=== PATIENT | female | born 1965 | race Caucasian/White ===

== ENCOUNTER 2018-02-24 20:04 | Inpatient (IN) | payer MEDICAID, MEDICARE ==
--- NOTE | 2018-02-24 21:06 | ER Document Report ---
ED General - General Chief Complaint: Vomiting Stated Complaint: POSSIBLE HIGH BLOOD PRESSURE, VOMITING Time Seen by Provider: 02/24/18 20:38 Mode of Arrival: Stretcher Information source: Patient Notes: This is a 52-year-old female with a history of atrial fibrillation (Eliquis), breast cancer (status post double mastectomy September of this year), morbid obesity and lymphedema who presents to the emergency room with shaking chills, vomiting x1 with coffee grounds, generalized weakness. Patient has noticed that she is got erythema of the left chest wall which is new from yesterday. The erythema is over the mastectomy site on the left. TRAVEL OUTSIDE OF THE [place] IN LAST 30 DAYS: No - HPI Onset: This morning Onset/Duration: Gradual Quality of pain: Dull Severity: Mild Pain Level: 1 Associated symptoms: Chills, Fever, Nausea Exacerbated by: Denies Relieved by: Denies Similar symptoms previously: No Recently seen / treated by doctor: No - Related Data Allergies/Adverse Reactions: dronedarone [From Multaq] Allergy (Severe, Verified 02/24/18 21:46) Difficulty breathing Past Medical History - General Information source: Patient - Social History Smoking Status: Never Smoker Cigarette use (# per day): No Chew tobacco use (# tins/day): No Frequency of alcohol use: None Drug Abuse: None Lives with: Family Family History: None Patient has suicidal ideation: No Patient has homicidal ideation: No - Past Medical History Cardiac Medical History: Reports: None Pulmonary Medical History: Reports: None EENT Medical History: Reports: None Neurological Medical History: Reports: None Endocrine Medical History: Reports: None Renal/ Medical History: Reports: None. Denies: Hx Peritoneal Dialysis Malignancy Medical History: Reports: Hx Breast Cancer GI Medical History: Reports: None Musculoskeletal Medical History: Reports Hx Arthritis, Reports Other Skin Medical History: Reports Other - Lymphedema lymphedema Psychiatric Medical History: Reports: None Traumatic Medical History: Reports: None Infectious Medical History: Reports: None Past Surgical History: Reports: Hx Mastectomy Review of Systems - Review of Systems Constitutional: Chills, Fever EENT: No symptoms reported Cardiovascular: No symptoms reported Respiratory: No symptoms reported Gastrointestinal: Nausea, Vomiting Genitourinary: No symptoms reported Female Genitourinary: No symptoms reported Musculoskeletal: See HPI Skin: See HPI Hematologic/Lymphatic: No symptoms reported Neurological/Psychological: No symptoms reported Physical Exam - Vital signs Vitals: Temp Pulse Resp BP Pulse Ox 99.5 F 106 H 19 156/82 H 95 02/24/18 20:20 02/24/18 20:20 02/24/18 20:20 02/24/18 20:20 02/24/18 20:20 Notes: 52-year-old female, alert and oriented x3. Her blood pressure is 156/82, pulse of 105, temperature 99.5, respiratory 19, O2 sat 96%. HEAD: Atraumatic, normocephalic. EYES: Pupils equal round and reactive to light, extraocular movements intact, sclera anicteric, conjunctiva are normal. ENT: TMs normal, nares patent, oropharynx clear without exudates. Moist mucous membranes. NECK: Normal range of motion, supple without obvious mass or JVD. LUNGS: Breath sounds clear to auscultation bilaterally and equal. No wheezes rales or rhonchi. Chest wall: Patient has erythema to the left chest wall over the mastectomy site. No obvious fluctuance or drainage. HEART: Regular rate and rhythm without murmurs, rubs or gallops. ABDOMEN: Soft, normoactive bowel sounds. Large reducible abdominal wall hernia without tenderness, rebound or guarding. No masses appreciated. EXTREMITIES: Normal range of motion, no pitting or edema. No clubbing or cyanosis. NEUROLOGICAL: Cranial nerves II through XII grossly intact. Normal speech, moving all extremities. PSYCH: Normal mood, normal affect. SKIN: Warm, Dry, normal turgor, no rashes or lesions noted. Course - Re-evaluation Re-evalutation: 02/24/18 23:20 Note: Patient's been having Rigor's and fever. She does report having redness over the left mastectomy site that started acutely within the last 24 hours. There is a significant cellulitic exchange consultant the left mastectomy site compared to the right. There is no fluctuance. Clinically there is no evidence of abscess. Ultrasound of the chest wall shows no definitive abscess. There is some edematous changes in the skin which you could see with a cellulitis. Blood cultures were sent and patient was started on IV vancomycin. Additionally , I straight cath urine sample does show infection so IV Levofloxacin was also added to the antibiotic regimen. Note: Patient was given ibuprofen once earlier for headache. The plan will be to avoid NSAIDs given her use of Eliquis. 02/24/18 23:50 02/24/18 23:52 - Vital Signs Vital signs: Temp Pulse Resp BP Pulse Ox 99.5 F 106 H 30 H 169/49 H 95 02/24/18 20:20 02/24/18 20:20 02/24/18 20:39 02/24/18 20:39 02/24/18 20:39 - Laboratory Result Diagrams: 02/24/18 20:31 02/24/18 20:31 Laboratory results interpreted by me: 02/24/18 02/24/18 02/24/18 20:31 20:31 21:27 Plt Count 115 L Seg Neutrophils % 86.7 H Lymphocytes % 7.6 L Glucose 144 H Total Bilirubin 1.4 H Urine Glucose (UA) >=500 H Urine Ketones TRACE H Urine Blood MODERATE H Urine Urobilinogen 4.0 H Ur Leukocyte Esterase MODERATE H - Diagnostic Test Radiology reviewed: Image reviewed, Reports reviewed - Chest x-ray shows no infiltrates Critical Care Note - Critical Care Note Total time excluding time spent on procedures (mins): 60 Discharge - Discharge Clinical Impression: Cellulitis chest wall, UTI Condition: Stable Disposition: ADMITTED INPATIENT
[2018-02-24 21:12] LABS: ABSOLUTE LYMPHOCYTES (AUTO) 0.5 10^3/uL (0.5-4.7); ABSOLUTE MONOCYTES (AUTO) 0.3 10^3/uL (0.1-1.4); ABSOLUTE NEUT (AUTO) 5.8 10^3/uL (1.7-8.2); BASOPHILS % (AUTO) 0.4 % (0-2); EOSINOPHILS % (AUTO) 0.2 % (0-6); HEMATOCRIT 38.3 % (36.0-47.0); HEMOGLOBIN 13.1 g/dL (12.0-15.5); LYMPHOCYTES % (AUTO) 7.6 % (13-45); MEAN CORPUSCULAR HEMOGLOBIN 30.9 pg (27.0-33.4); MEAN CORPUSCULAR HGB CONC 34.3 g/dL (32.0-36.0); MEAN CORPUSCULAR VOLUME 90 fl (80-97); MONOCYTES % (AUTO) 5.1 % (3-13); PLATELET COUNT 115 10^3/uL (150-450); RED BLOOD COUNT 4.25 10^6/uL (3.72-5.28); RED CELL DISTRIBUTION WIDTH 13.8 % (11.5-14.0); SEGMENTED NEUTROPHILS % (AUTO) 86.7 % (42-78); TOTAL CELLS COUNTED % (AUTO) 100 %; WHITE BLOOD COUNT 6.7 10^3/uL (4.0-10.5)
[2018-02-24 21:21] LABS: ALANINE AMINOTRANSFERASE 16 U/L (9-52); ALBUMIN 3.6 g/dL (3.5-5.0); ALKALINE PHOSPHATASE 86 U/L (38-126); ANION GAP 13 (5-19); ASPARTATE AMINO TRANSFERASE 29 U/L (14-36); BILIRUBIN,DIRECT 0.4 mg/dL (0.0-0.4); BILIRUBIN,TOTAL 1.4 mg/dL (0.2-1.3); BLOOD UREA NITROGEN 13 mg/dL (7-20); CALCIUM 8.5 mg/dL (8.4-10.2); CARBON DIOXIDE 22 mmol/L (22-30); CHLORIDE 103 mmol/L (98-107); GLUCOSE 144 mg/dL (75-110); SODIUM 137.5 mmol/L (137-145); TOTAL PROTEIN 7.1 g/dL (6.3-8.2)
[2018-02-24] MEDS ORDERED: VANCOMYCIN HCL INJ 1000 MG VIAL IV ONE (21:36)
--- NOTE | 2018-02-24 21:47 | RADIOLOGY REPORT (SQ) ---
EXAM DESCRIPTION: XR CHEST 1 VIEW COMPLETED DATE/TME: 02/24/2018 21:03 Images time stamped 2113 hours. CLINICAL HISTORY: 52 years, Female, fever COMPARISON: None. NUMBER OF VIEWS: 1 TECHNIQUE: Single frontal view of the chest was obtained in AP portable technique. LIMITATIONS: Lordotic positioning. FINDINGS: Prominent cardiac and mediastinal silhouette. Heart size is top normal. Low lung volumes grossly clear without focal opacity, pneumothorax or pleural effusions. The visualized bones are within normal limits. IMPRESSION: No acute cardiopulmonary abnormalities. 2010 [employer]- All Rights Reserved
[2018-02-24 21:51] LABS: APPEARANCE,URINE CLOUDY; BILIRUBIN,URINE NEGATIVE (NEGATIVE); COLOR,URINE YELLOW; GLUCOSE, URINE >=500 mg/dL (NEGATIVE); KETONES,URINE TRACE mg/dL (NEGATIVE); LEUKOCYTE ESTERASE,URINE MODERATE (NEGATIVE); NITRITE,URINE NEGATIVE (NEGATIVE); PROTEIN,URINE NEGATIVE (NEGATIVE); URINE SPECIFIC GRAVITY 1.017
[2018-02-24] MEDS ORDERED: CEFEPIME 1 GM/D5W RTU 1 GM/50 ML RTUPB IV ONE (23:07)
--- NOTE | 2018-02-24 23:18 | RADIOLOGY REPORT (SQ) ---
EXAM DESCRIPTION: US CHEST COMPLETED DATE/TME: 02/24/2018 22:05 CLINICAL HISTORY: 52 years, Female, left chest wall-soft tissue r/o abscess COMPARISON: EXAM DESCRIPTION: CLINICAL HISTORY: left chest wall-soft tissue r/o abscess COMPARISON: None. FINDINGS: Sonography was performed at the site of clinical concern. There is a small amount of fluid and edema. Habitus limits detail. No large fluid collection. No definite abscess. IMPRESSION: No definite abscess. Mild edema and small amounts of fluid are seen in the region of concern. TECHNIQUE: LIMITATIONS: None. FINDINGS: IMPRESSION: 2010 [facility] [employer]- All Rights Reserved
[2018-02-24] MEDS ORDERED: IBUPROFEN 600 MG TABLET PO ONE (23:19)
[2018-02-24] MEDS ORDERED: LEVOFLOXACIN 500 MG/D5W RTU 500 MG/100 ML RTUPB IV ONE (23:24)
[2018-02-24] MEDS ORDERED: IPRATROPIUM/ALBUTEROL 0.5-2.5 MG/3 ML AMPUL NEB PRN (23:57)
[2018-02-24] MEDS ORDERED: DEXTROSE 50%-WATER 25 GM/50 ML DISP.SYRIN IV PRN ×2 (23:57)
[2018-02-24] MEDS ORDERED: ACETAMINOPHEN 325 MG TABLET PO PRN (23:57)
[2018-02-24] MEDS ORDERED: MAG HYDROX/AL HYDROX/SIMETH SUSP 30 ML UDCUP PO PRN (23:57)
[2018-02-24] MEDS ORDERED: MAGNESIUM HYDROXIDE SUSP 30 ML UDCUP PO PRN (23:57)
[2018-02-24] MEDS ORDERED: INSULIN LISPRO 100 UNIT/ML 3 ML VIAL SUBCUT PRN (23:57)
[2018-02-24] MEDS ORDERED: GLUCAGON,HUMAN RECOMB 1 MG INJ IM PRN (23:57)
[2018-02-24] MEDS ORDERED: DEXTROSE 40% GEL 15 GM TUBE PO PRN ×2 (23:57)
[2018-02-25] MEDS ORDERED: OXYCODONE HCL SR 10 MG TABLET PO ONE
[2018-02-25] MEDS ORDERED: NORMAL SALINE 1000 ML 1,000 ML IV PRN (00:04)
[2018-02-25] MEDS ORDERED: METOPROLOL TARTRATE 25 MG TABLET PO ONE (00:15)
[2018-02-25] MEDS ORDERED: VANCOMYCIN HCL 0 MG in DEXTROSE 5%-WATER 250 ML IV NR (05:15)
--- NOTE | 2018-02-25 05:24 | PDOC H&P ---
History of Present Illness Admission Date/PCP: 02/25/18 00:09 Patient complains of: Left mastectomy scar pain History of Present Illness: CARMELA BRADEN is a 52 year old female with a past medical history of morbid obesity, opiate dependent chronic pain, diabetes, hypertension, atrial fibrillation on Eliquis and breast cancer status post double mastectomy September 2017. She presents with 24 hours of erythema, ecchymosis, swelling and pain about the left chest wall overlying the mastectomy scar. Patient states this is how her diagnosis of breast cancer initially presented, she denies acute trauma. She has had subjective fever and chills nausea without vomiting and rigors. In the emergency room she does have an unremarkable workup though is started on empiric antibiotics, symptomatic management and referred to the hospitalist for admission. Past Medical History Cardiac Medical History: Reports: Atrial Fibrillation Pulmonary Medical History: Reports: None Denies: Sleep Apnea EENT Medical History: Reports: None Neurological Medical History: Reports: None Endocrine Medical History: Reports: Diabetes Mellitus Type 2 Renal/ Medical History: Reports: None Malignancy Medical History: Reports: Breast Cancer GI Medical History: Reports: None Musculoskeltal Medical History: Reports: Arthritis, Other Skin Medical History: Reports: Other - Lymphedema lymphedema Psychiatric Medical History: Reports: None, Depression Denies: Substance Abuse, Tobacco Dependency Traumatic Medical History: Reports: None Infectious Medical History: Reports: None Past Surgical History Past Surgical History: Reports: Cholecystectomy, Mastectomy Social History Information Source: Patient Lives with: Family Smoking Status: Former Smoker Frequency of Alcohol Use: None Hx Recreational Drug Use: No Drugs: None Hx Prescription Drug Abuse: No - Advance Directive Resuscitation Status: Full Code Family History Family History: DM, Hypertension Parental Family History Reviewed: Yes Children Family History Reviewed: Yes Sibling(s) Family History Reviewed.: Yes Medication/Allergy Allergies/Adverse Reactions: dronedarone [From Multaq] Allergy (Severe, Verified 02/24/18 21:46) Difficulty breathing Review of Systems Constitutional: ABSENT: chills, fever(s), headache(s), weight gain, weight loss Eyes: ABSENT: visual disturbances Ears: ABSENT: hearing changes Cardiovascular: ABSENT: chest pain, dyspnea on exertion, edema, orthropnea, palpitations Respiratory: ABSENT: cough, hemoptysis Gastrointestinal: ABSENT: abdominal pain, constipation, diarrhea, hematemesis, hematochezia, nausea, vomiting Genitourinary: ABSENT: dysuria, hematuria Musculoskeletal: ABSENT: joint swelling Integumentary: ABSENT: rash, wounds Neurological: ABSENT: abnormal gait, abnormal speech, confusion, dizziness, focal weakness, syncope Psychiatric: ABSENT: anxiety, depression, homidical ideation, suicidal ideation Endocrine: ABSENT: cold intolerance, heat intolerance, polydipsia, polyuria Hematologic/Lymphatic: ABSENT: easy bleeding, easy bruising Physical Exam Vital Signs: Temp Pulse Resp BP Pulse Ox 97.8 F 67 18 115/41 L 98 02/25/18 01:30 02/25/18 01:30 02/25/18 01:30 02/25/18 01:30 02/25/18 01:30 Intake & Output 02/23/18 02/24/18 02/25/18 11:59 11:59 11:59 Intake Total 1100 Balance 1100 Weight 179.2 kg General appearance: PRESENT: cooperative, mild distress, morbidly obese, well- developed, well-nourished Head exam: PRESENT: atraumatic, normocephalic Eye exam: PRESENT: conjunctiva pink, EOMI, PERRLA. ABSENT: scleral icterus Ear exam: PRESENT: normal external ear exam Mouth exam: PRESENT: moist, tongue midline Neck exam: ABSENT: carotid bruit, JVD, lymphadenopathy, thyromegaly Respiratory exam: PRESENT: clear to auscultation son. ABSENT: rales, rhonchi, wheezes Cardiovascular exam: PRESENT: RRR. ABSENT: diastolic murmur, rubs, systolic murmur Pulses: PRESENT: normal dorsalis pedis pul Vascular exam: PRESENT: normal capillary refill GI/Abdominal exam: PRESENT: normal bowel sounds, soft. ABSENT: distended, guarding, mass, organolmegaly, rebound, tenderness Torso Front/Back Image: 1 - 6 x 12 cm ecchymosis and tenderness superimposed on mastectomy scar 2 - 6 x 12 cm ecchymosis and tenderness superimposed on mastectomy scar Rectal exam: PRESENT: deferred Extremities exam: PRESENT: full ROM. ABSENT: calf tenderness, clubbing, pedal edema Neurological exam: PRESENT: alert, awake, oriented to person, oriented to place , oriented to time, oriented to situation, CN II-XII grossly intact. ABSENT: motor sensory deficit Psychiatric exam: PRESENT: appropriate affect, normal mood. ABSENT: homicidal ideation, suicidal ideation Skin exam: PRESENT: dry, intact, warm. ABSENT: cyanosis, rash Results Impressions: Chest X-Ray 02/24/18 21:03 IMPRESSION: No acute cardiopulmonary abnormalities. 2010 [employer]- All Rights Reserved Chest Ultrasound 02/24/18 22:05 IMPRESSION: No definite abscess. Mild edema and small amounts of fluid are seen in the region of concern. TECHNIQUE: LIMITATIONS: None. FINDINGS: IMPRESSION: 2010 [employer]- All Rights Reserved Assessment & Plan - Diagnosis (1) Cellulitis of chest wall Is this a current diagnosis for this admission?: Yes Plan: Cellulitis Will obtain blood and wound culture repeat CBC, continue empiric antibiotic coverage for community-acquired MRSA with double coverage and symptomatic management. Consider surgical consultation if not significantly improved with follow-up evaluation. (2) Diabetes Is this a current diagnosis for this admission?: Yes Plan: Outpatient regiment with Humalog sliding scale (3) Atrial fibrillation Is this a current diagnosis for this admission?: Yes Plan: Continue metoprolol with Eliquis (4) Breast cancer Is this a current diagnosis for this admission?: Yes Plan: Given spontaneous recurrence of symptom heralding breast cancer diagnosis will consult oncology - Time Time Spent: 50 to 70 Minutes - Inpatient Certification Medical Necessity: Need Close Monitoring Due to Risk of Patient Decompensation
[2018-02-25 05:41] LABS: ABSOLUTE LYMPHOCYTES (AUTO) 0.7 10^3/uL (0.5-4.7); ABSOLUTE MONOCYTES (AUTO) 0.3 10^3/uL (0.1-1.4); ABSOLUTE NEUT (AUTO) 4.8 10^3/uL (1.7-8.2); BASOPHILS % (AUTO) 0.2 % (0-2); EOSINOPHILS % (AUTO) 0.6 % (0-6); HEMATOCRIT 34.9 % (36.0-47.0); LYMPHOCYTES % (AUTO) 11.6 % (13-45); MEAN CORPUSCULAR HGB CONC 34.5 g/dL (32.0-36.0); MEAN CORPUSCULAR VOLUME 90 fl (80-97); MONOCYTES % (AUTO) 5.3 % (3-13); RED BLOOD COUNT 3.88 10^6/uL (3.72-5.28); RED CELL DISTRIBUTION WIDTH 13.9 % (11.5-14.0); SEGMENTED NEUTROPHILS % (AUTO) 82.3 % (42-78); TOTAL CELLS COUNTED % (AUTO) 100 %; WHITE BLOOD COUNT 5.9 10^3/uL (4.0-10.5)
[2018-02-25] MEDS ORDERED: VANCOMYCIN HCL 1,500 MG in DEXTROSE 5%-WATER 250 ML IV ONE (05:45)
[2018-02-25 05:47] LABS: PLATELET COUNT 98 10^3/uL (150-450)
[2018-02-25] MEDS ORDERED: HEPARIN SOD (PORCINE) 5,000 UNIT/ML 1 ML SYRINGE SUBCUT SCH (06:00)
[2018-02-25 06:07] LABS: ANION GAP 11 (5-19); BLOOD UREA NITROGEN 15 mg/dL (7-20); CALCIUM 8.2 mg/dL (8.4-10.2); CARBON DIOXIDE 22 mmol/L (22-30); CHLORIDE 105 mmol/L (98-107); GLUCOSE 124 mg/dL (75-110); POTASSIUM 3.7 mmol/L (3.6-5.0); SODIUM 137.7 mmol/L (137-145)
[2018-02-25] MEDS: DOCUSATE SODIUM 100 MG CAPSULE PO SCH ×2 (10:24→17:43)
[2018-02-25] MEDS: VANCOMYCIN HCL 1,250 MG in DEXTROSE 5%-WATER 250 ML IV SCH ×2 (10:25→17:43)
[2018-02-25] MEDS: METOPROLOL TARTRATE 25 MG TABLET PO SCH ×2 (10:25→17:43)
--- NOTE | 2018-02-25 10:41 | PDOC PROGRESS REPORT ---
Subjective Progress Note for:: 02/25/18 Subjective:: The patient is a 52-year-old female with a past medical history of super morbid obesity, opiate dependence, chronic pain, diabetes, hypertension, atrial fibrillation on Eliquis, and breast cancer status post double mastectomy in September 2017 who was admitted 02/25/2018 for development of cellulitis to her left mastectomy site. Patient was seen on morning rounds with her daughter present. She was found resting in bed comfortably on room air. The patient reports that she had 2-3 days of subjective fever, anorexia, and generalized malaise. She states that yesterday she felt feverish and noted that her heart rate was elevated and that she had a high blood pressure. She had one episode of bright red emesis. She states that short time later she then noted dark brown emesis; "looked like stool." She denies associated abdominal pain, reflux symptoms, melena or hematochezia. She states that this prompted her to call EMS; at the time of EMS arrival her tachycardia, hypertension, and nausea had all resolved. They conducted an EKG, which she reports to be normal, and states that at that time she did not have any erythema to her chest. However, it was decided to be evaluated in the emergency department and upon her arrival there via EMS, she had developed erythema to her left chest wall at her mastectomy site extending to her left upper back and encompassing a skin flap. She denies headache, dizziness, chest pain, palpitations, abd pain, nausea, vomiting, or tenderness to her chest wall. She does confirm continued subjective fever and chills. She has no new questions or concerns. No concerns per nursing. Reason For Visit: CHEST WALL CELLULITIS MORBID OBESITY DIABETES Physical Exam Vital Signs: Temp Pulse Resp BP Pulse Ox 98.5 F 71 16 145/55 H 100 02/25/18 08:09 02/25/18 08:09 02/25/18 08:09 02/25/18 08:09 02/25/18 08:09 Intake & Output 02/24/18 02/25/18 02/26/18 06:59 06:59 06:59 Intake Total 1100 Balance 1100 Weight 179.2 kg General appearance: PRESENT: no acute distress, cooperative, morbidly obese, well-developed Head exam: PRESENT: atraumatic, normocephalic Eye exam: PRESENT: conjunctiva pink, EOMI, PERRLA. ABSENT: scleral icterus Ear exam: PRESENT: normal external ear exam Mouth exam: PRESENT: moist, tongue midline Neck exam: ABSENT: carotid bruit, JVD, lymphadenopathy, thyromegaly Respiratory exam: PRESENT: clear to auscultation son, decreased breath sounds - Secondary to body habitus and poor inspiratory effort, symmetrical, unlabored. ABSENT: rales, rhonchi, wheezes Cardiovascular exam: PRESENT: RRR. ABSENT: diastolic murmur, rubs, systolic murmur Pulses: PRESENT: normal dorsalis pedis pul Vascular exam: PRESENT: normal capillary refill GI/Abdominal exam: PRESENT: normal bowel sounds, soft. ABSENT: distended, guarding, mass, organolmegaly, rebound, tenderness Extremities exam: PRESENT: full ROM. ABSENT: calf tenderness, clubbing, pedal edema Neurological exam: PRESENT: alert, awake, oriented to person, oriented to place , oriented to time, oriented to situation, CN II-XII grossly intact. ABSENT: motor sensory deficit Psychiatric exam: PRESENT: appropriate affect, normal mood. ABSENT: homicidal ideation, suicidal ideation Skin exam: PRESENT: dry, intact, warm, other - Deep red/purple erythema to her left chest wall extending from midway through her healed mastectomy scar around to her mid upper back. Outlined by skin marker with no apparent change. Nontender. No drainage. No break in skin noted. Resembles ecchymosis.. ABSENT: cyanosis, rash Results Laboratory Results: 02/25/18 04:23 02/25/18 04:23 02/25/18 02/25/18 04:23 04:23 WBC 5.9 RBC 3.88 Hgb 12.0 Hct 34.9 L MCV 90 MCH 31.0 MCHC 34.5 RDW 13.9 Plt Count 98 L Seg Neutrophils % 82.3 H Lymphocytes % 11.6 L Monocytes % 5.3 Eosinophils % 0.6 Basophils % 0.2 Absolute Neutrophils 4.8 Absolute Lymphocytes 0.7 Absolute Monocytes 0.3 Absolute Eosinophils 0.0 Absolute Basophils 0.0 Sodium 137.7 Potassium 3.7 Chloride 105 Carbon Dioxide 22 Anion Gap 11 BUN 15 Creatinine 0.59 Est GFR ( Amer) > 60 Est GFR (Non-Af Amer) > 60 Glucose 124 H Calcium 8.2 L Impressions: Chest X-Ray 02/24/18 21:03 IMPRESSION: No acute cardiopulmonary abnormalities. 2010 [employer]- All Rights Reserved Chest Ultrasound 02/24/18 22:05 IMPRESSION: No definite abscess. Mild edema and small amounts of fluid are seen in the region of concern. TECHNIQUE: LIMITATIONS: None. FINDINGS: IMPRESSION: 2010 [employer]- All Rights Reserved Assessment & Plan - Diagnosis (1) Cellulitis of chest wall Is this a current diagnosis for this admission?: Yes Plan: The patient presented with nontender, nondraining, erythema to her left chest wall at mastectomy site extending around to her mid upper back. The patient reported to EMS completed an EKG at her home and at that time, she had no erythema. She was transported to the emergency department, and upon arrival noted a large area of erythema. The patient reports subjective fevers and chills with anorexia at home for the previous 2-3 days; however, is now known to have a urinary tract infection. T-max since arrival is 99.5. WBCs are normal. Differentials include cellulitis, recurrence of breast malignancy, and ecchymosis from seatbelt placement during transportation on EMS stretcher. Chest ultrasound revealed mild edema with a small amount of fluid but no definite abscess observed. Blood cultures are pending. The patient has empirically been placed on IV vancomycin and Levaquin. Surgical and oncological consultations are pending. (2) Hematemesis Qualifiers: Nausea presence: with nausea Qualified Code(s): K92.0 - Hematemesis Is this a current diagnosis for this admission?: Yes Plan: The patient reports one episode of hematemesis yesterday followed by an additional episode of emesis with dark brown to black material yesterday which prompted her evaluation by EMS. The patient has been on full dose Eliquis for her chronic atrial fibrillation. Hemoglobin on arrival 13.1, has drifted down to 12 with IV fluids and IV antibiotics. Occult stool is pending. Holding Eliquis. Protonix IV twice daily. Clear liquid diet. (3) Atrial fibrillation Qualifiers: Atrial fibrillation type: chronic Qualified Code(s): I48.2 - Chronic atrial fibrillation Is this a current diagnosis for this admission?: Yes Plan: Continue home dose metoprolol. Holding Eliquis and aspirin secondary to report of hematemesis. (4) Breast cancer Is this a current diagnosis for this admission?: Yes Plan: The patient reports that her initial breast cancer diagnosis was prompted by an admission for abscess and cellulitis of her left breast. She states that did not receive radiation or chemotherapy at any time. She underwent a double mastectomy in September 2017. Due to the sudden onset of erythema at her mastectomy site, oncology has been consulted. Appreciate their evaluation recommendations. (5) Diabetes Qualifiers: Diabetes mellitus type: type 2 Diabetes mellitus exterminator helper termite insulin use: without chcf use Is this a current diagnosis for this admission?: Yes Plan: A1c 5.9%. She is currently on a clear liquid diet. Accu-Cheks before meals and at bedtime with Humalog for sliding scale coverage. Registered dietitian has been consulted. (6) UTI (urinary tract infection) Qualifiers: Urinary tract infection type: site unspecified Hematuria presence: without hematuria Qualified Code(s): N39.0 - Urinary tract infection, site not specified Is this a current diagnosis for this admission?: Yes Plan: The patient reports 2-3 days of malaise, fatigue, subjective fever and chills. She denies specific urinary symptoms, however urinalysis was grossly positive for urinary tract infection. Urine culture is pending. She is empirically been placed on IV vancomycin and Levaquin for both UTI and presumed cellulitis of the chest wall. Will adjust antibiotics as cultures result. (7) Morbid obesity with BMI of 60.0-69.9, adult Is this a current diagnosis for this admission?: Yes Plan: The patient is noted to have a BMI of 60.1. She reports limited mobility due to joint pain and weakness. The registered dietitian is consulted. Have also consulted physical therapy. Bariatric bed is ordered. Patient is to be out of bed 3 times daily for all meals. - Time Time Spent with patient: 25-34 minutes Medications reviewed and adjusted accordingly: Yes Anticipated discharge: Home Within: within 48 hours
--- NOTE | 2018-02-25 11:09 | PDOC CONSULTATION ---
Consultation Consult Date: 02/25/18 Attending physician:: GARRETT ZIMMERMAN Consult reason:: Known hx of stage 1 breast ca s/p b/l mastectomy here w/ new onset cellulitis History of Present Illness Admission Date/PCP: 02/25/18 00:09 Patient complains of: History of stage I breast cancer now with what appears to be cellulitis of the skin History of Present Illness: CARMELA BRADEN is a 52 year old female with known history of stage I breast cancer. She was originally diagnosed in 02/2017, at that time she had a cellulitis of the left breast, and ultimately this was followed with antibiotics , she had mammogram and ultrasound which showed a left breast mass, she was then referred to Dr. Saenz of breast surgery in [place]. Ultimately she decided on bilateral mastectomy, and this happened earlier this year, and she tells me she was diagnosed with a stage I breast cancer lymph node negative. She was recommended by Dr. Saenz that no adjuvant therapy was needed and she was then just placed on follow-up with him. She is supposed to follow-up in March with them. She did well after surgery and had no complaints. About 24 hours ago she began having acute onset fevers chills nausea and vomiting. Ultimately she had some tachycardia, she has known A. fib that was uncovered during the preoperative evaluation for the breast surgery. She called EMS who initially evaluated her and felt she was stable for follow-up with her PCP, and she apparently noticed some redness of the left chest wall after that EMS evaluation. Apparently the chills and nausea continued so she decided to come to the ED, and she came by EMS, apparently by the time she got to the ED the redness of the chest wall had spread to the back. In the ED she was also found to have UA consistent with a UTI and she has been on coverage for both cellulitis as well as UTI with vancomycin and Levaquin. Cultures are pending. She is having current chills in the room. Past Medical History Cardiac Medical History: Reports: None, Atrial Fibrillation Pulmonary Medical History: Reports: None Denies: Sleep Apnea EENT Medical History: Reports: None Neurological Medical History: Reports: None Endocrine Medical History: Reports: None, Diabetes Mellitus Type 2 Renal/ Medical History: Reports: None Malignancy Medical History: Reports: Breast Cancer GI Medical History: Reports: None Musculoskeltal Medical History: Reports: Arthritis, Other Skin Medical History: Reports: Other - Lymphedema lymphedema Psychiatric Medical History: Reports: None, Depression Denies: Substance Abuse, Tobacco Dependency Traumatic Medical History: Reports: None Infectious Medical History: Reports: None Past Surgical History Past Surgical History: Reports: Cholecystectomy, Mastectomy Social History Information Source: Patient Lives with: Family Smoking Status: Former Smoker Cigarettes Packs Per Day: 3 Pipes Per Day: 30 Last Time Smoked: 7 yrs ago Frequency of Alcohol Use: None Hx Recreational Drug Use: No Drugs: None Hx Prescription Drug Abuse: No - Advance Directive Resuscitation Status: Full Code Family History Family History: DM, Hypertension Parental Family History Reviewed: Yes Children Family History Reviewed: Yes Sibling(s) Family History Reviewed.: Yes Medication/Allergy Allergies/Adverse Reactions: dronedarone [From Multaq] Allergy (Severe, Verified 02/24/18 21:46) Difficulty breathing Review of Systems Constitutional: PRESENT: anorexia, chills, fatigue, fever(s), weakness Cardiovascular: ABSENT: chest pain, dyspnea on exertion, edema, orthropnea, palpitations Gastrointestinal: PRESENT: nausea, vomiting Musculoskeletal: ABSENT: joint swelling Integumentary: PRESENT: diaphoresis Neurological: ABSENT: abnormal gait, abnormal speech, confusion, dizziness, focal weakness, syncope Psychiatric: PRESENT: anxiety Endocrine: PRESENT: cold intolerance Physical Exam Vital Signs: Temp Pulse Resp BP Pulse Ox 98.5 F 71 16 145/55 H 100 02/25/18 08:09 02/25/18 08:09 02/25/18 08:09 02/25/18 08:09 02/25/18 08:09 Intake & Output 02/24/18 02/25/18 02/26/18 06:59 06:59 06:59 Intake Total 1100 Balance 1100 Weight 179.2 kg General appearance: PRESENT: no acute distress, well-developed, well-nourished Head exam: PRESENT: atraumatic, normocephalic Eye exam: PRESENT: conjunctiva pink, EOMI, PERRLA. ABSENT: scleral icterus Ear exam: PRESENT: normal external ear exam Mouth exam: PRESENT: moist, tongue midline Neck exam: ABSENT: carotid bruit, JVD, lymphadenopathy, thyromegaly Respiratory exam: PRESENT: clear to auscultation son. ABSENT: rales, rhonchi, wheezes Cardiovascular exam: PRESENT: RRR. ABSENT: diastolic murmur, rubs, systolic murmur Pulses: PRESENT: normal dorsalis pedis pul Vascular exam: PRESENT: normal capillary refill GI/Abdominal exam: PRESENT: normal bowel sounds, soft. ABSENT: distended, guarding, mass, organolmegaly, rebound, tenderness Rectal exam: PRESENT: deferred Extremities exam: PRESENT: full ROM. ABSENT: calf tenderness, clubbing, pedal edema Neurological exam: PRESENT: alert, awake, oriented to person, oriented to place , oriented to time, oriented to situation, CN II-XII grossly intact. ABSENT: motor sensory deficit Psychiatric exam: PRESENT: appropriate affect, normal mood. ABSENT: homicidal ideation, suicidal ideation Skin exam: PRESENT: dry, intact, warm, other - Redness left mastectomy could scar tracking to the back Results Laboratory Results: 02/25/18 04:23 02/25/18 04:23 02/25/18 02/25/18 04:23 04:23 WBC 5.9 RBC 3.88 Hgb 12.0 Hct 34.9 L MCV 90 MCH 31.0 MCHC 34.5 RDW 13.9 Plt Count 98 L Seg Neutrophils % 82.3 H Lymphocytes % 11.6 L Monocytes % 5.3 Eosinophils % 0.6 Basophils % 0.2 Absolute Neutrophils 4.8 Absolute Lymphocytes 0.7 Absolute Monocytes 0.3 Absolute Eosinophils 0.0 Absolute Basophils 0.0 Sodium 137.7 Potassium 3.7 Chloride 105 Carbon Dioxide 22 Anion Gap 11 BUN 15 Creatinine 0.59 Est GFR ( Amer) > 60 Est GFR (Non-Af Amer) > 60 Glucose 124 H Calcium 8.2 L Impressions: Chest X-Ray 02/24/18 21:03 IMPRESSION: No acute cardiopulmonary abnormalities. 2010 [employer]- All Rights Reserved Chest Ultrasound 02/24/18 22:05 IMPRESSION: No definite abscess. Mild edema and small amounts of fluid are seen in the region of concern. TECHNIQUE: LIMITATIONS: None. FINDINGS: IMPRESSION: 2010 [employer]- All Rights Reserved Status: Image reviewed by me Assessment & Plan - Diagnosis (1) Cellulitis of chest wall Is this a current diagnosis for this admission?: Yes Plan: Discussed with hospitalist team, there may actually been more of a bruise from the stretcher belt from EMS but given the fact that there were chills and fevers it may be cellulitis. Agree with current therapy with vancomycin and Levaquin, we should see improvement in the redness if it truly is cellulitis within 24-48 hours. If instead it is truly a bruise then we should see changes consistent with that within the same time. If instead the redness continues and it does not seem to be related to trauma, and appropriate antibiotics are continued, then we would want to further evaluate for the possibility of underlying recurrent disease with imaging. But I think is less likely to be recurrent disease. (2) Breast cancer Qualifiers: Breast location: upper outer quadrant of breast Estrogen receptor status: unspecified Patient sex: female Laterality: left Qualified Code(s): C50.412 - Malignant neoplasm of upper-outer quadrant of left female breast Is this a current diagnosis for this admission?: Yes Plan: Unknown if it is hormone receptor positive or negative breast cancer, we have requested records from [place]. We will see her as an outpatient and establish care as well and get records that way if needed. Plan for treatment of the cellulitis and UTI if there is no improvement we will plan for evaluation of the breast cancer with CT of the chest abd pelvis and bone scan and possibly focused ultrasound of the chest wall if needed. (3) UTI (urinary tract infection) Qualifiers: Urinary tract infection type: acute cystitis Hematuria presence: without hematuria Qualified Code(s): N30.00 - Acute cystitis without hematuria Is this a current diagnosis for this admission?: Yes Plan: Appears to have UTI awaiting urine cultures agree with current antibiotic approach - Time Time Spent: Greater than 70 Minutes - Inpatient Certification Based on my medical assessment, after consideration of the patient's comorbidities, presenting symptoms, or acuity I expect that the services needed warrant INPATIENT care.: Yes I certify that my determination is in accordance with my understanding of Medicare's requirements for reasonable and necessary INPATIENT services [42 CFR 412.3e].: Yes Medical Necessity: Need for IV Antibiotics, Risk of Complication if Not Cared For in Hospital
[2018-02-25] MEDS ORDERED: NYSTATIN TOPICAL POWDER 15 GM TP PRN (12:51)
[2018-02-25 12:53] LABS: INTERNATIONAL RATION (INR) 1.36; PROTHROMBIN TIME 17.5 SEC (11.4-15.4)
[2018-02-25] MEDS ORDERED: ONDANSETRON HCL INJ/PF 4 MG/2 ML SDV IV PRN (13:08)
[2018-02-25] MEDS ORDERED: ACETAMINOPHEN 325 MG TABLET PO PRN (14:15)
[2018-02-25] MEDS ORDERED: OXYCODONE HCL IR 5 MG TABLET PO PRN (14:15)
[2018-02-25] MEDS: LEVOFLOXACIN 750 MG/D5W RTU 750 MG/150 ML RTUPB IV SCH (21:26)
[2018-02-25] MEDS: PANTOPRAZOLE SODIUM 40 MG VIAL IV SCH (21:27)
[2018-02-26] MEDS: VANCOMYCIN HCL 1,250 MG in DEXTROSE 5%-WATER 250 ML IV SCH ×3 (02:04→17:50)
[2018-02-26 05:53] LABS: ABSOLUTE EOSINOPHILS # (AUTO) 0.1 10^3/uL (0.0-0.6); ABSOLUTE LYMPHOCYTES (AUTO) 0.8 10^3/uL (0.5-4.7); ABSOLUTE MONOCYTES (AUTO) 0.4 10^3/uL (0.1-1.4); ABSOLUTE NEUT (AUTO) 2.2 10^3/uL (1.7-8.2); BASOPHILS % (AUTO) 0.3 % (0-2); EOSINOPHILS % (AUTO) 1.6 % (0-6); HEMATOCRIT 34.1 % (36.0-47.0); HEMOGLOBIN 11.6 g/dL (12.0-15.5); LYMPHOCYTES % (AUTO) 22.5 % (13-45); MEAN CORPUSCULAR HEMOGLOBIN 30.8 pg (27.0-33.4); MEAN CORPUSCULAR VOLUME 91 fl (80-97); MONOCYTES % (AUTO) 12.2 % (3-13); PLATELET COUNT 103 10^3/uL (150-450); RED BLOOD COUNT 3.77 10^6/uL (3.72-5.28); SEGMENTED NEUTROPHILS % (AUTO) 63.4 % (42-78); TOTAL CELLS COUNTED % (AUTO) 100 %; WHITE BLOOD COUNT 3.4 10^3/uL (4.0-10.5)
[2018-02-26] MEDS: LEVOTHYROXINE SODIUM 0.088 MG TABLET PO SCH (06:10)
[2018-02-26 06:28] LABS: ANION GAP 9 (5-19); BLOOD UREA NITROGEN 12 mg/dL (7-20); CALCIUM 8.1 mg/dL (8.4-10.2); CARBON DIOXIDE 24 mmol/L (22-30); CHLORIDE 104 mmol/L (98-107); GLUCOSE 104 mg/dL (75-110); POTASSIUM 3.8 mmol/L (3.6-5.0); SODIUM 137.2 mmol/L (137-145)
[2018-02-26 09:19] LABS: FREE T3 2.65 pg/mL (2.77-5.27); FREE T4 (FREE THYROXINE) 0.84 ng/dL (0.78-2.19)
[2018-02-26] MEDS: PANTOPRAZOLE SODIUM 40 MG VIAL IV SCH ×2 (09:21→21:46)
[2018-02-26] MEDS: DOCUSATE SODIUM 100 MG CAPSULE PO SCH ×2 (10:48→17:50)
[2018-02-26] MEDS: METOPROLOL TARTRATE 25 MG TABLET PO SCH ×2 (10:48→17:50)
[2018-02-26] MEDS: EZETIMIBE 10 MG TABLET PO SCH (10:48)
[2018-02-26] MEDS: LOSARTAN POTASSIUM 50 MG TABLET PO SCH (10:49)
--- NOTE | 2018-02-26 10:53 | PDOC PROGRESS REPORT ---
Subjective Progress Note for:: 02/26/18 Subjective:: The patient is a 52-year-old female with a past medical history of super morbid obesity, opiate dependence, chronic pain, diabetes, hypertension, atrial fibrillation on Eliquis, and breast cancer status post double mastectomy in September 2017 who was admitted 02/25/2018 for development of cellulitis to her left mastectomy site. Patient was seen on morning rounds. She was found resting in bed comfortably on room air. She reports continued subjective fever and chills. She also reports increased tenderness to her left chest wall, described as a burning or stinging sensation. She did experience slight nausea yesterday, but no episodes of vomiting. She denies headache, dizziness, chest pain, palpitations, abd pain, and vomiting. She has no new questions or concerns. No concerns per nursing. Reason For Visit: CHEST WALL CELLULITIS MORBID OBESITY DIABETES Physical Exam Vital Signs: Temp Pulse Resp BP Pulse Ox 99.0 F 70 18 154/61 H 97 02/26/18 08:57 02/26/18 09:41 02/26/18 09:41 02/26/18 08:57 02/26/18 09:41 Intake & Output 02/25/18 02/26/18 02/27/18 06:59 06:59 06:59 Intake Total 1100 900 Balance 1100 900 Weight 179.2 kg General appearance: PRESENT: no acute distress, cooperative, morbidly obese, well-developed Head exam: PRESENT: atraumatic, normocephalic Eye exam: PRESENT: conjunctiva pink, EOMI, PERRLA. ABSENT: scleral icterus Ear exam: PRESENT: normal external ear exam Mouth exam: PRESENT: moist, tongue midline Neck exam: ABSENT: carotid bruit, JVD, lymphadenopathy, thyromegaly Respiratory exam: PRESENT: clear to auscultation son, decreased breath sounds - bibasilar secondary to body habitus, positioning, and poor inspiratory effort, symmetrical, unlabored. ABSENT: rales, rhonchi, wheezes Cardiovascular exam: PRESENT: RRR, +S1, +S2. ABSENT: diastolic murmur, rubs, systolic murmur Pulses: PRESENT: normal dorsalis pedis pul Vascular exam: PRESENT: normal capillary refill GI/Abdominal exam: PRESENT: hernia - large umbilical hernia, normal bowel sounds , soft, other - exam limited secondary to body habitus. ABSENT: distended, guarding, mass, organolmegaly, rebound, tenderness Rectal exam: PRESENT: deferred Extremities exam: PRESENT: full ROM. ABSENT: calf tenderness, clubbing, pedal edema Neurological exam: PRESENT: alert, awake, oriented to person, oriented to place , oriented to time, oriented to situation, CN II-XII grossly intact. ABSENT: motor sensory deficit Psychiatric exam: PRESENT: appropriate affect, normal mood. ABSENT: homicidal ideation, suicidal ideation Skin exam: PRESENT: dry, erythema - Deep red erythema to her left chest wall extending from midway through her healed mastectomy scar around to her mid upper back. Outlined by skin marker upon presentation to ED. Errythema does resemble early ecchymosis, however, is entirely unchanged from yesterday., intact, warm. ABSENT: cyanosis, rash Results Laboratory Results: 02/26/18 04:37 02/26/18 04:37 02/25/18 02/26/18 02/26/18 11:50 04:37 04:37 WBC 3.4 L RBC 3.77 Hgb 11.6 L Hct 34.1 L MCV 91 MCH 30.8 MCHC 34.0 RDW 14.0 Plt Count 103 L Seg Neutrophils % 63.4 Lymphocytes % 22.5 Monocytes % 12.2 Eosinophils % 1.6 Basophils % 0.3 Absolute Neutrophils 2.2 Absolute Lymphocytes 0.8 Absolute Monocytes 0.4 Absolute Eosinophils 0.1 Absolute Basophils 0.0 Sodium 137.2 Potassium 3.8 Chloride 104 Carbon Dioxide 24 Anion Gap 9 BUN 12 Creatinine 0.59 Est GFR ( Amer) > 60 Est GFR (Non-Af Amer) > 60 Glucose 104 Calcium 8.1 L TSH Free T4 Free T3 pg/mL Stool Occult Blood POSITIVE 02/26/18 02/26/18 04:37 04:37 WBC RBC Hgb Hct MCV MCH MCHC RDW Plt Count Seg Neutrophils % Lymphocytes % Monocytes % Eosinophils % Basophils % Absolute Neutrophils Absolute Lymphocytes Absolute Monocytes Absolute Eosinophils Absolute Basophils Sodium Potassium Chloride Carbon Dioxide Anion Gap BUN Creatinine Est GFR ( Amer) Est GFR (Non-Af Amer) Glucose Calcium TSH 48.70 H Free T4 0.84 Free T3 pg/mL 2.65 L Stool Occult Blood Impressions: Chest X-Ray 02/24/18 21:03 IMPRESSION: No acute cardiopulmonary abnormalities. 2010 [employer]- All Rights Reserved Chest Ultrasound 02/24/18 22:05 IMPRESSION: No definite abscess. Mild edema and small amounts of fluid are seen in the region of concern. TECHNIQUE: LIMITATIONS: None. FINDINGS: IMPRESSION: 2010 [facility] [employer]- All Rights Reserved Assessment & Plan - Diagnosis (1) Cellulitis of chest wall Is this a current diagnosis for this admission?: Yes Plan: Unchanged appearance from yesterday; erythema has not progressed past the skin marker outline and retains its deep red color. The patient presented with nontender, nondraining, erythema to her left chest wall at mastectomy site extending around to her mid upper back. The patient reported to EMS completed an EKG at her home and at that time, she had no erythema. Upon arrival to the emergency department, noted a large area of erythema. The patient reports subjective fevers and chills with anorexia at home for the previous 2-3 days; however, is now known to have a urinary tract infection. T-max since arrival is 99.5. WBCs are normal. Blood cultures are negative at 24 hours. Differentials include cellulitis, recurrence of breast malignancy, and ecchymosis. However, it has been confirmed that the patient arrived POV, not EMS as previously believed; therefore it is not related to seatbelt placement. Chest ultrasound revealed mild edema with a small amount of fluid but no definite abscess observed. Blood cultures are pending. The patient has empirically been placed on IV vancomycin and Levaquin. Oncological consultations is appreciated; recommends continued antibiotics at this time. (2) Hematemesis Qualifiers: Nausea presence: with nausea Qualified Code(s): K92.0 - Hematemesis Is this a current diagnosis for this admission?: Yes Plan: The patient reports one episode of hematemesis yesterday followed by an additional episode of emesis with dark brown to black material yesterday which prompted her evaluation by EMS. The patient has been on full dose Eliquis for her chronic atrial fibrillation. Hemoglobin on arrival 13.1, has drifted down to 11.6 with IV fluids and IV antibiotics. Occult stool is positive. Holding Eliquis. Protonix IV twice daily. Clear liquid diet. Surgery has been consulted; appreciate their assistance in evaluating for GI bleed. (3) Atrial fibrillation Qualifiers: Atrial fibrillation type: chronic Qualified Code(s): I48.2 - Chronic atrial fibrillation Is this a current diagnosis for this admission?: Yes Plan: Rate controlled on home dose metoprolol. Holding Eliquis and aspirin secondary to report of hematemesis. (4) Breast cancer Qualifiers: Breast location: upper outer quadrant of breast Estrogen receptor status: unspecified Patient sex: female Laterality: left Qualified Code(s): C50.412 - Malignant neoplasm of upper-outer quadrant of left female breast Is this a current diagnosis for this admission?: Yes Plan: The patient reports that her initial breast cancer diagnosis was prompted by an admission for abscess and cellulitis of her left breast. She states that did not receive radiation or chemotherapy at any time. She underwent a double mastectomy in September 2017. Due to the sudden onset of erythema at her mastectomy site, oncology has been consulted. Appreciate their evaluation recommendations. (5) Diabetes Qualifiers: Diabetes mellitus type: type 2 Diabetes mellitus senior living insulin use: without senior living use Is this a current diagnosis for this admission?: Yes Plan: A1c 5.9%. She is currently on a clear liquid diet. Accu-Cheks before meals and at bedtime with Humalog for sliding scale coverage. Registered dietitian has been consulted. (6) UTI (urinary tract infection) Qualifiers: Urinary tract infection type: acute cystitis Hematuria presence: without hematuria Qualified Code(s): N30.00 - Acute cystitis without hematuria Is this a current diagnosis for this admission?: Yes Plan: The patient reports 2-3 days of malaise, fatigue, subjective fever and chills. She denies specific urinary symptoms, however urinalysis was grossly positive for urinary tract infection. Urine culture #1 E Coli resistant to tetracycline, bactrim, and ampicillin; #2 gram negative kwabena. Continue IV vancomycin and Levaquin for both UTI and cellulitis of the chest wall. Will adjust antibiotics as cultures result. (7) Hypothyroid Is this a current diagnosis for this admission?: Yes Plan: TSH 48.70 Free T4 0.84 Free T3 2.65 Continue home dose levothyroxine. (8) Morbid obesity with BMI of 60.0-69.9, adult Is this a current diagnosis for this admission?: Yes Plan: The patient is noted to have a BMI of 60.1. She reports limited mobility due to joint pain and weakness. The registered dietitian is consulted. Have also consulted physical therapy. Bariatric bed is ordered. Patient is to be out of bed 3 times daily for all meals. Incentive spirometry to bedside. DVT prophylaxis held secondary to GI bleed. - Time Time Spent with patient: 15-24 minutes Medications reviewed and adjusted accordingly: Yes Anticipated discharge: Home
[2018-02-26 10:58] LABS: VANCOMYCIN,TROUGH 12.5 ug/mL (5.0-20.0)
--- NOTE | 2018-02-26 11:18 | PDOC CONSULTATION ---
Consultation Consult Date: 02/26/18 Attending physician:: RHONDA WILSON Consult reason:: Left chest wall pathology History of Present Illness Admission Date/PCP: 02/25/18 00:09 History of Present Illness: CARMELA BRADEN is a 52 year old female With a history of morbid obesity, COPD, atrial fibrillation, on Eliquis, presents to the emergency department a day and a half ago via ground rescue complaining of a variety of symptoms including fever, tachycardia, redness involving her left chest wall and throwing up [id number] with specks of blood. She was evaluated in the emergency department where she is found to what was believed to be cellulitis of the anterior chest wall at site of previous mastectomy and was admitted to the hospital service for same. She has been on intravenous antibiotics for 2 days without clinical improvement. Stool was checked for guaiac and it was heme positive. She denies clinical evidence of GI bleeding, history of peptic ulcer disease; she is never had a colonoscopy. Patient's past history includes a diagnosis of left breast cancer presenting with skin involvement by her report. She underwent bilateral mastectomy by Dr. Saenz in [facility] approximately 5 months ago. She had negative sentinel lymph node x2 left axilla. Complete pathology report was not available. According to the patient she received no pre-or postoperative chemo therapy, or antiestrogen therapy. She is not being seen by an oncologist at this time. Dr. Wilson has seen her in consultation this hospitalization. Past Medical History Cardiac Medical History: Reports: None, Atrial Fibrillation Pulmonary Medical History: Reports: None Denies: Sleep Apnea EENT Medical History: Reports: None Neurological Medical History: Reports: None Endocrine Medical History: Reports: None, Diabetes Mellitus Type 2 Renal/ Medical History: Reports: None Malignancy Medical History: Reports: Breast Cancer GI Medical History: Reports: None Musculoskeltal Medical History: Reports: Arthritis, Other Skin Medical History: Reports: Other - Lymphedema lymphedema Psychiatric Medical History: Reports: None, Depression Denies: Substance Abuse, Tobacco Dependency Traumatic Medical History: Reports: None Infectious Medical History: Reports: None Past Surgical History Past Surgical History: As per HPI Past Surgical History: Reports: Cholecystectomy, Mastectomy Social History Lives with: Family Smoking Status: Former Smoker Cigarettes Packs Per Day: 3 Pipes Per Day: 30 Last Time Smoked: 7 yrs ago Frequency of Alcohol Use: None Hx Recreational Drug Use: No Drugs: None Hx Prescription Drug Abuse: No - Advance Directive Resuscitation Status: Full Code Family History Family History: DM, Hypertension Parental Family History Reviewed: Yes Children Family History Reviewed: Yes Sibling(s) Family History Reviewed.: Yes Medication/Allergy Home Medications: Albuterol Sulfate [Proair Hfa Inhalation Aerosol 8.5 gm Mdi] 2 puff IH Q6HP PRN 02/25/18 Apixaban [Eliquis 5 mg Tablet] 5 mg PO Q12 02/25/18 Cyclobenzaprine HCl [Flexeril 10 mg Tablet] 10 mg PO HSP PRN 02/25/18 Doxycycline Hyclate [Vibramycin] 50 mg PO Q12 02/25/18 Ergocalciferol (Vitamin D2) [Vitamin D2] 50,000 unit PO WE@1000 02/25/18 Ezetimibe [Zetia 10 mg Tablet] 10 mg PO DAILY 02/25/18 Levothyroxine Sodium [Synthroid 0.088 mg Tablet] 88 mcg PO Q6AM 02/25/18 Losartan Potassium [Cozaar 100 mg Tablet] 100 mg PO DAILY 02/25/18 Metoprolol Tartrate [Lopressor 25 mg Tablet] 25 mg PO DAILY 02/25/18 Nitroglycerin [Nitrostat 0.4 mg (1/150 Gr) Tabs 25/Bottle] 1 tab SL Q5MP PRN 02/02 Nystatin [Mycostatin Topical Powder 15 gm] 1 applic TP BIDP PRN 02/25/18 Oxycodone HCl [Oxy-Ir 5 mg Tablet] 15 mg PO Q6HP PRN 02/25/18 Potassium Chloride [Klor-Con 10 Meq Capsule ER] 10 meq PO WE@1000 02/25/18 Pregabalin [Lyrica 100 Mg Capsule] 100 mg PO Q12 02/25/18 Allergies/Adverse Reactions: dronedarone [From Multaq] Allergy (Severe, Verified 02/24/18 21:46) Difficulty breathing Review of Systems Constitutional: PRESENT: fever(s) Ears: ABSENT: hearing changes Cardiovascular: PRESENT: as per HPI Gastrointestinal: PRESENT: as per HPI Genitourinary: ABSENT: dysuria, hematuria Musculoskeletal: ABSENT: joint swelling Integumentary: PRESENT: as per HPI, other - Patient states the erythema of the chest wall is exactly how her breast cancer presented earlier this year Psychiatric: ABSENT: anxiety, depression, homidical ideation, suicidal ideation Endocrine: ABSENT: cold intolerance, heat intolerance, polydipsia, polyuria Physical Exam Vital Signs: Temp Pulse Resp BP Pulse Ox 99.0 F 70 18 154/61 H 97 02/26/18 08:57 02/26/18 09:41 02/26/18 09:41 02/26/18 08:57 02/26/18 09:41 Intake & Output 02/25/18 02/26/18 02/27/18 06:59 06:59 06:59 Intake Total 1100 900 Balance 1100 900 Weight 179.2 kg General appearance: PRESENT: no acute distress, other - Sitting in a chair Head exam: PRESENT: atraumatic Eye exam: PRESENT: EOMI Ear exam: PRESENT: normal external ear exam Neck exam: PRESENT: full ROM Respiratory exam: PRESENT: clear to auscultation son Cardiovascular exam: PRESENT: RRR Pulses: PRESENT: normal carotid pulses, normal radial pulses, +1 pedal pulses bilateral GI/Abdominal exam: PRESENT: soft Rectal exam: PRESENT: deferred Extremities exam: PRESENT: full ROM Psychiatric exam: PRESENT: appropriate affect Skin exam: PRESENT: other - Bilateral mastectomies with well-healed scars; along the mid to lateral aspect of the left mastectomy scar, extending in a geographic pattern all the way to the far left axilla is a minimally blanching violaceous, purple colored skin process. It is not warm, and it does not feel edematous. There is no active wound, drainage. There is no such process on the right side. Results Laboratory Results: 02/26/18 04:37 02/26/18 04:37 02/25/18 02/26/18 02/26/18 11:50 04:37 04:37 WBC 3.4 L RBC 3.77 Hgb 11.6 L Hct 34.1 L MCV 91 MCH 30.8 MCHC 34.0 RDW 14.0 Plt Count 103 L Seg Neutrophils % 63.4 Lymphocytes % 22.5 Monocytes % 12.2 Eosinophils % 1.6 Basophils % 0.3 Absolute Neutrophils 2.2 Absolute Lymphocytes 0.8 Absolute Monocytes 0.4 Absolute Eosinophils 0.1 Absolute Basophils 0.0 Sodium 137.2 Potassium 3.8 Chloride 104 Carbon Dioxide 24 Anion Gap 9 BUN 12 Creatinine 0.59 Est GFR ( Amer) > 60 Est GFR (Non-Af Amer) > 60 Glucose 104 Calcium 8.1 L TSH Free T4 Free T3 pg/mL Stool Occult Blood POSITIVE 02/26/18 02/26/18 04:37 04:37 WBC RBC Hgb Hct MCV MCH MCHC RDW Plt Count Seg Neutrophils % Lymphocytes % Monocytes % Eosinophils % Basophils % Absolute Neutrophils Absolute Lymphocytes Absolute Monocytes Absolute Eosinophils Absolute Basophils Sodium Potassium Chloride Carbon Dioxide Anion Gap BUN Creatinine Est GFR ( Amer) Est GFR (Non-Af Amer) Glucose Calcium TSH 48.70 H Free T4 0.84 Free T3 pg/mL 2.65 L Stool Occult Blood Impressions: Chest X-Ray 02/24/18 21:03 IMPRESSION: No acute cardiopulmonary abnormalities. 2010 [employer]- All Rights Reserved Chest Ultrasound 02/24/18 22:05 IMPRESSION: No definite abscess. Mild edema and small amounts of fluid are seen in the region of concern. TECHNIQUE: LIMITATIONS: None. FINDINGS: IMPRESSION: 2010 [employer]- All Rights Reserved Assessment & Plan - Diagnosis (1) Cellulitis of chest wall Is this a current diagnosis for this admission?: Yes Plan: Impression: Atypical presentation of left chest wall erythema in patient 5 months status post bilateral mastectomies, left side for diagnosis of breast cancer; the patient presented with no leukocytosis, and no documented fever; despite being on intravenous antibiotics for 2 days, the erythematous pattern has not significantly changed. We do not have the pathology report on the patient's operative specimen following lateral mastectomy in September 2017; although an inflammatory process or infectious process may be responsible for the patient's symptoms and physical findings, the possibility of persisting malignancy in the left chest wall the sitter. Recommendations: 1. Proceed with feeding the patient 2. The above discussed with the patient; I suggested bedside open. We will perform that later today. She is in agreement. 3. Discussed the above with Dr. Wilson who agrees to proceed. (2) Breast cancer, left Is this a current diagnosis for this admission?: Yes (3) Status post bilateral mastectomy Is this a current diagnosis for this admission?: Yes (4) Heme positive stool Is this a current diagnosis for this admission?: Yes Plan: Impression: Solitary episode of possible hematemesis; microscopic heme positive stool test; no evidence of clinical GI bleeding; no previous colonoscopy. Recommendations: 1. To evaluate the hematemesis, I suggested an upper endoscopy but the patient is not interested at this time; 2. As the possibility of a GI bleed is less urgent, I believe this could be evaluated in the outpatient setting with upper and lower endoscopy by Dr. Parsons at [facility]. (6) Atrial fibrillation Qualifiers: Atrial fibrillation type: chronic Qualified Code(s): I48.2 - Chronic atrial fibrillation Is this a current diagnosis for this admission?: Yes (7) Breast cancer Qualifiers: Breast location: upper outer quadrant of breast Estrogen receptor status: unspecified Patient sex: female Laterality: left Qualified Code(s): C50.412 - Malignant neoplasm of upper-outer quadrant of left female breast Is this a current diagnosis for this admission?: Yes (8) Diabetes Qualifiers: Diabetes mellitus type: type 2 Diabetes mellitus custodial insulin use: without custodial use Is this a current diagnosis for this admission?: Yes (9) Morbid obesity with BMI of 60.0-69.9, adult Is this a current diagnosis for this admission?: Yes - Time Time Spent: 30 to 50 Minutes Smoking Cessation Education: over 10 minutes Medications reviewed and adjusted accordingly: Yes Anticipated discharge: Home - Inpatient Certification Based on my medical assessment, after consideration of the patient's comorbidities, presenting symptoms, or acuity I expect that the services needed warrant INPATIENT care.: Yes I certify that my determination is in accordance with my understanding of Medicare's requirements for reasonable and necessary INPATIENT services [42 CFR 412.3e].: Yes Medical Necessity: Need For IV Fluids
[2018-02-26] MEDS ORDERED: LIDOCAINE 2% INJ-PF (100 MG/5 ML) SYRINGE ONE (14:34)
[2018-02-26] MEDS ORDERED: LIDOCAINE 1%/EPINEPHRINE INJ 20 ML VIAL INJ PRN (15:00)
--- NOTE | 2018-02-26 15:16 | Operative Report ---
Operative Report DATE OF SURGERY: 02/26/18 PREOPERATIVE DIAGNOSIS: History of left breast carcinoma; status post mastectomy. Left chest wall cellulitis POSTOPERATIVE DIAGNOSIS: Same OPERATION: Full-thickness skin excisional biopsy left chest wall with primary closure SURGEON: JV PAK ANESTHESIA: Local TISSUE REMOVED OR ALTERED: Portion full-thickness left chest wall skin COMPLICATIONS: None ESTIMATED BLOOD LOSS: Scant INTRAOPERATIVE FINDINGS: See below PROCEDURE: Left chest wall was exposed, post mastectomy skin flaps appreciated. In the central aspect of the left redundant skin flap, the skin was prepped with Betadine, skin anesthetized with 1% lidocaine with epinephrine. Timeout conducted. A small ellipse of skin was excised with a #15 blade, yielding approximately 1/2 x 1 cm piece of skin which was sent in formaldehyde for permanent analysis. The skin defect was closed with running 4-0 Prolene suture. 4 x 4's benzoin Steri-Strips all applied. Bleeding was minimal. Patient tolerated the procedure well. Recommendations: 1. Leave dressing on for 48 hours 2. Patient to follow-up with [facility] in approximately 1 week for suture removal.
[2018-02-26] MEDS: LEVOFLOXACIN 750 MG/D5W RTU 750 MG/150 ML RTUPB IV SCH (21:47)
[2018-02-27] MEDS: VANCOMYCIN HCL 1,250 MG in DEXTROSE 5%-WATER 250 ML IV SCH ×2 (03:57→11:01)
[2018-02-27 05:31] LABS: HEMATOCRIT 35.1 % (36.0-47.0); HEMOGLOBIN 11.9 g/dL (12.0-15.5); MEAN CORPUSCULAR HEMOGLOBIN 30.7 pg (27.0-33.4); MEAN CORPUSCULAR VOLUME 90 fl (80-97); PLATELET COUNT 107 10^3/uL (150-450); RED BLOOD COUNT 3.89 10^6/uL (3.72-5.28); RED CELL DISTRIBUTION WIDTH 14.2 % (11.5-14.0); WHITE BLOOD COUNT 3.1 10^3/uL (4.0-10.5)
[2018-02-27 05:48] LABS: ANION GAP 10 (5-19); BLOOD UREA NITROGEN 11 mg/dL (7-20); CALCIUM 8.2 mg/dL (8.4-10.2); CARBON DIOXIDE 25 mmol/L (22-30); CHLORIDE 105 mmol/L (98-107); GLUCOSE 115 mg/dL (75-110); POTASSIUM 3.9 mmol/L (3.6-5.0); SODIUM 139.9 mmol/L (137-145)
[2018-02-27] MEDS: LEVOTHYROXINE SODIUM 0.088 MG TABLET PO SCH (05:50)
--- NOTE | 2018-02-27 08:12 | PDOC PROGRESS REPORT ---
Subjective Progress Note for:: 02/27/18 Subjective:: Doing a little better this am, L chest wall mastectomy site still w/ redness, no improvement on atbx Reason For Visit: CHEST WALL CELLULITIS MORBID OBESITY DIABETES Physical Exam Vital Signs: Temp Pulse Resp BP Pulse Ox 98.5 F 69 18 142/45 H 99 02/27/18 00:08 02/27/18 00:08 02/27/18 00:08 02/27/18 00:08 02/27/18 00:08 Intake & Output 02/26/18 02/27/18 02/28/18 06:59 06:59 06:59 Intake Total 900 5000 Output Total 1200 Balance 900 3800 Weight 179.2 kg General appearance: PRESENT: no acute distress, well-developed, well-nourished Head exam: PRESENT: atraumatic, normocephalic Eye exam: PRESENT: conjunctiva pink, EOMI, PERRLA. ABSENT: scleral icterus Ear exam: PRESENT: normal external ear exam Mouth exam: PRESENT: moist, tongue midline Neck exam: ABSENT: carotid bruit, JVD, lymphadenopathy, thyromegaly Respiratory exam: PRESENT: clear to auscultation son. ABSENT: rales, rhonchi, wheezes Cardiovascular exam: PRESENT: RRR. ABSENT: diastolic murmur, rubs, systolic murmur Pulses: PRESENT: normal dorsalis pedis pul Vascular exam: PRESENT: normal capillary refill GI/Abdominal exam: PRESENT: normal bowel sounds, soft. ABSENT: distended, guarding, mass, organolmegaly, rebound, tenderness Rectal exam: PRESENT: deferred Extremities exam: PRESENT: full ROM. ABSENT: calf tenderness, clubbing, pedal edema Neurological exam: PRESENT: alert, awake, oriented to person, oriented to place , oriented to time, oriented to situation, CN II-XII grossly intact. ABSENT: motor sensory deficit Psychiatric exam: PRESENT: appropriate affect, normal mood. ABSENT: homicidal ideation, suicidal ideation Skin exam: PRESENT: dry, intact, warm. ABSENT: cyanosis, rash Results Laboratory Results: 02/27/18 05:17 02/27/18 05:17 02/26/18 02/27/18 02/27/18 04:37 05:17 05:17 WBC 3.1 L RBC 3.89 Hgb 11.9 L Hct 35.1 L MCV 90 MCH 30.7 MCHC 34.0 RDW 14.2 H Plt Count 107 L Sodium 139.9 Potassium 3.9 Chloride 105 Carbon Dioxide 25 Anion Gap 10 BUN 11 Creatinine 0.70 Est GFR ( Amer) > 60 Est GFR (Non-Af Amer) > 60 Glucose 115 H Calcium 8.2 L Free T4 0.84 Free T3 pg/mL 2.65 L Impressions: Chest X-Ray 02/24/18 21:03 IMPRESSION: No acute cardiopulmonary abnormalities. 2010 [employer] All Rights Reserved Chest Ultrasound 02/24/18 22:05 IMPRESSION: No definite abscess. Mild edema and small amounts of fluid are seen in the region of concern. TECHNIQUE: LIMITATIONS: None. FINDINGS: IMPRESSION: 2010 [employer]- All Rights Reserved Assessment & Plan - Diagnosis (1) Cellulitis of chest wall Is this a current diagnosis for this admission?: Yes Plan: Less likely cellulitis since no improvement, would d/c vancomycin, bx pending (2) Breast cancer Qualifiers: Breast location: upper outer quadrant of breast Estrogen receptor status: unspecified Patient sex: female Laterality: left Qualified Code(s): C50.412 - Malignant neoplasm of upper-outer quadrant of left female breast Is this a current diagnosis for this admission?: Yes Plan: awaiting skin bx results, awaiting further records (3) UTI (urinary tract infection) Qualifiers: Urinary tract infection type: acute cystitis Hematuria presence: without hematuria Qualified Code(s): N30.00 - Acute cystitis without hematuria Is this a current diagnosis for this admission?: Yes Plan: dc vanc, cont levaquin alone - Time Within: within 24 hours Disposition: when medically ready, can d/c home, she will f/u next week w/ me and Dr. Parsons for results of bx
[2018-02-27] MEDS: LOSARTAN POTASSIUM 50 MG TABLET PO SCH (10:27)
[2018-02-27] MEDS: EZETIMIBE 10 MG TABLET PO SCH (10:27)
[2018-02-27] MEDS: METOPROLOL TARTRATE 25 MG TABLET PO SCH ×2 (10:27→22:04)
[2018-02-27] MEDS: DOCUSATE SODIUM 100 MG CAPSULE PO SCH ×2 (10:27→17:56)
[2018-02-27] MEDS: PANTOPRAZOLE SODIUM 40 MG VIAL IV SCH ×2 (11:01→22:07)
--- NOTE | 2018-02-27 11:34 | PDOC PROGRESS REPORT ---
Subjective Progress Note for:: 02/27/18 Subjective:: The patient is a 52-year-old female with a past medical history of super morbid obesity, opiate dependence, chronic pain, diabetes, hypertension, atrial fibrillation on Eliquis, and breast cancer status post double mastectomy in September 2017 who was admitted 02/25/2018 for development of cellulitis to her left mastectomy site. Patient was seen on morning rounds with her daughter present. She was found resting in bed comfortably on room air. She reports resolution of her fever, chills, and nausea. She also reports continued tenderness to her left chest wall, described as a burning or stinging sensation. She denies headache, dizziness, chest pain, palpitations, dyspnea, orthopnea, abd pain, and vomiting. She has no new questions or concerns. No concerns per nursing. Reason For Visit: CHEST WALL CELLULITIS MORBID OBESITY DIABETES Physical Exam Vital Signs: Temp Pulse Resp BP Pulse Ox 97.7 F 63 18 144/51 H 98 02/27/18 10:16 02/27/18 10:16 02/27/18 10:16 02/27/18 10:16 02/27/18 10:16 Intake & Output 02/26/18 02/27/18 02/28/18 06:59 06:59 06:59 Intake Total 900 5000 Output Total 1200 Balance 900 3800 Weight 179.2 kg General appearance: PRESENT: no acute distress, morbidly obese, well-developed, well-nourished Head exam: PRESENT: atraumatic, normocephalic Eye exam: PRESENT: conjunctiva pink, EOMI, PERRLA. ABSENT: scleral icterus Ear exam: PRESENT: normal external ear exam Mouth exam: PRESENT: moist, tongue midline Neck exam: ABSENT: carotid bruit, JVD, lymphadenopathy, thyromegaly Respiratory exam: PRESENT: decreased breath sounds - Bibasilar; secondary to body habitus and poor Inspra Tory effort, symmetrical, unlabored. ABSENT: rales , rhonchi, wheezes Cardiovascular exam: PRESENT: RRR, +S1, +S2. ABSENT: diastolic murmur, rubs, systolic murmur Pulses: PRESENT: normal dorsalis pedis pul Vascular exam: PRESENT: normal capillary refill GI/Abdominal exam: PRESENT: hernia - Large umbilical hernia, normal bowel sounds , soft. ABSENT: distended, guarding, mass, organolmegaly, rebound, tenderness Rectal exam: PRESENT: deferred Extremities exam: PRESENT: full ROM. ABSENT: calf tenderness, clubbing, pedal edema Neurological exam: PRESENT: alert, awake, oriented to person, oriented to place , oriented to time, oriented to situation, CN II-XII grossly intact. ABSENT: motor sensory deficit Psychiatric exam: PRESENT: appropriate affect, normal mood. ABSENT: homicidal ideation, suicidal ideation Skin exam: PRESENT: dry, erythema - Deep red erythema to her left chest wall extending from midway through her healed mastectomy scar around to her mid upper back; slight reduction in intensity of color. Outlined by skin marker upon presentation to ED, unchanged., intact, warm. ABSENT: cyanosis, rash Results Laboratory Results: 02/27/18 05:17 02/27/18 05:17 02/27/18 02/27/18 05:17 05:17 WBC 3.1 L RBC 3.89 Hgb 11.9 L Hct 35.1 L MCV 90 MCH 30.7 MCHC 34.0 RDW 14.2 H Plt Count 107 L Sodium 139.9 Potassium 3.9 Chloride 105 Carbon Dioxide 25 Anion Gap 10 BUN 11 Creatinine 0.70 Est GFR ( Amer) > 60 Est GFR (Non-Af Amer) > 60 Glucose 115 H Calcium 8.2 L Impressions: Chest X-Ray 02/24/18 21:03 IMPRESSION: No acute cardiopulmonary abnormalities. 2010 [employer]- All Rights Reserved Chest Ultrasound 02/24/18 22:05 IMPRESSION: No definite abscess. Mild edema and small amounts of fluid are seen in the region of concern. TECHNIQUE: LIMITATIONS: None. FINDINGS: IMPRESSION: 2010 [employer]- All Rights Reserved Assessment & Plan - Diagnosis (1) Cellulitis of chest wall Is this a current diagnosis for this admission?: Yes Plan: Minimal change in appearance from yesterday; erythema has not progressed past the skin marker outline, slight decrease in intensity of color. The patient presented with nontender, nondraining, erythema to her left chest wall at mastectomy site extending around to her mid upper back. The patient reported to EMS completed an EKG at her home and at that time, she had no erythema. Upon arrival to the emergency department, noted a large area of erythema. The patient reports subjective fevers and chills with anorexia at home for the previous 2-3 days; however, is now known to have a urinary tract infection. T-max at arrival is 99.5; abefrile since that time. WBCs are normal. Blood cultures are negative at 48 hours. Skin biopsy is pending. Chest ultrasound revealed mild edema with a small amount of fluid but no definite abscess observed. The patient has empirically been placed on IV vancomycin and Levaquin; vancomycin and Levaquin have been discontinued. Patient continues on oral Cipro. Oncology consultation is appreciated; recommends plans to discontinuing vancomycin. Will transition to oral Cipro based on concurrent urine culture. Surgery consultation is appreciated; now s/p skin biopsy. (2) Hematemesis Qualifiers: Nausea presence: with nausea Qualified Code(s): K92.0 - Hematemesis Is this a current diagnosis for this admission?: Yes Plan: Resolved. The patient reports one episode of hematemesis yesterday followed by an additional episode of emesis with dark brown to black material yesterday which prompted her evaluation by EMS. The patient has been on full dose Eliquis for her chronic atrial fibrillation. Hemoglobin on arrival 13.1, has drifted down to 11.6 with IV fluids and IV antibiotics. Now stable. Occult stool is positive. We will resume Eliquis. Continue Protonix IV twice daily. Surgery has been consulted; appreciate their assistance in evaluating for GI bleed. Recommend outpatient EGD and colonoscopy. (3) Atrial fibrillation Qualifiers: Atrial fibrillation type: chronic Qualified Code(s): I48.2 - Chronic atrial fibrillation Is this a current diagnosis for this admission?: Yes Plan: Rate controlled on home dose metoprolol. Resuming Eliquis today. (4) Breast cancer Qualifiers: Breast location: upper outer quadrant of breast Estrogen receptor status: unspecified Patient sex: female Laterality: left Qualified Code(s): C50.412 - Malignant neoplasm of upper-outer quadrant of left female breast Is this a current diagnosis for this admission?: Yes Plan: The patient reports that her initial breast cancer diagnosis was prompted by an admission for abscess and cellulitis of her left breast. She states that did not receive radiation or chemotherapy at any time. She underwent a double mastectomy in September 2017. Skin biopsy pending. Due to the sudden onset of erythema at her mastectomy site, oncology has been consulted. Appreciate their evaluation recommendations. (5) Diabetes Qualifiers: Diabetes mellitus type: type 2 Diabetes mellitus outdoor studies director insulin use: without senior living use Is this a current diagnosis for this admission?: Yes Plan: A1c 5.9%. She is currently on a clear liquid diet. Accu-Cheks before meals and at bedtime with Humalog for sliding scale coverage. Registered dietitian has been consulted. (6) UTI (urinary tract infection) Qualifiers: Urinary tract infection type: acute cystitis Hematuria presence: without hematuria Qualified Code(s): N30.00 - Acute cystitis without hematuria Is this a current diagnosis for this admission?: Yes Plan: The patient reports 2-3 days of malaise, fatigue, subjective fever and chills. She denies specific urinary symptoms, however urinalysis was grossly positive for urinary tract infection. Urine culture #1 E Coli resistant to tetracycline, bactrim, and ampicillin. Patient is transitioned to oral Cipro. (7) Hypothyroid Is this a current diagnosis for this admission?: Yes Plan: TSH 48.70 Free T4 0.84 Free T3 2.65 Continue home dose levothyroxine. (8) Morbid obesity with BMI of 60.0-69.9, adult Is this a current diagnosis for this admission?: Yes Plan: The patient is noted to have a BMI of 60.1. She reports limited mobility due to joint pain and weakness. The registered dietitian is consulted. Have also consulted physical therapy. Bariatric bed is ordered. Patient is to be out of bed 3 times daily for all meals. Incentive spirometry to bedside. DVT prophylaxis held secondary to GI bleed. - Time Time Spent with patient: 25-34 minutes Medications reviewed and adjusted accordingly: Yes Anticipated discharge: Home Within: within 24 hours
[2018-02-27] MEDS: CIPROFLOXACIN HCL 500 MG TABLET PO SCH (22:04)
[2018-02-28 05:20] LABS: HEMATOCRIT 35.7 % (36.0-47.0); HEMOGLOBIN 12.2 g/dL (12.0-15.5); MEAN CORPUSCULAR HEMOGLOBIN 30.9 pg (27.0-33.4); MEAN CORPUSCULAR HGB CONC 34.1 g/dL (32.0-36.0); MEAN CORPUSCULAR VOLUME 91 fl (80-97); PLATELET COUNT 122 10^3/uL (150-450); RED BLOOD COUNT 3.94 10^6/uL (3.72-5.28); RED CELL DISTRIBUTION WIDTH 14.2 % (11.5-14.0); WHITE BLOOD COUNT 3.5 10^3/uL (4.0-10.5)
[2018-02-28 05:53] LABS: ANION GAP 10 (5-19); BLOOD UREA NITROGEN 13 mg/dL (7-20); CALCIUM 8.4 mg/dL (8.4-10.2); CARBON DIOXIDE 24 mmol/L (22-30); CHLORIDE 107 mmol/L (98-107); GLUCOSE 106 mg/dL (75-110); POTASSIUM 3.8 mmol/L (3.6-5.0); SODIUM 140.8 mmol/L (137-145)
[2018-02-28] MEDS: LEVOTHYROXINE SODIUM 0.088 MG TABLET PO SCH (06:08)
--- NOTE | 2018-02-28 07:47 | PDOC PROGRESS REPORT ---
Subjective Progress Note for:: 02/28/18 Subjective:: No acute events overnight Reason For Visit: CHEST WALL CELLULITIS MORBID OBESITY DIABETES Physical Exam Vital Signs: Temp Pulse Resp BP Pulse Ox 98.4 F 65 18 137/41 H 99 02/27/18 23:38 02/27/18 23:38 02/27/18 23:38 02/27/18 23:38 02/27/18 23:38 Intake & Output 02/27/18 02/28/18 03/01/18 06:59 06:59 06:59 Intake Total 5000 2623 Output Total 1200 1400 Balance 3800 1223 Weight 179.2 kg 185.7 kg General appearance: PRESENT: no acute distress, well-developed, well-nourished Head exam: PRESENT: atraumatic, normocephalic Eye exam: PRESENT: conjunctiva pink, EOMI, PERRLA. ABSENT: scleral icterus Ear exam: PRESENT: normal external ear exam Mouth exam: PRESENT: moist, tongue midline Neck exam: ABSENT: carotid bruit, JVD, lymphadenopathy, thyromegaly Respiratory exam: PRESENT: clear to auscultation son. ABSENT: rales, rhonchi, wheezes Cardiovascular exam: PRESENT: RRR. ABSENT: diastolic murmur, rubs, systolic murmur Pulses: PRESENT: normal dorsalis pedis pul Vascular exam: PRESENT: normal capillary refill GI/Abdominal exam: PRESENT: normal bowel sounds, soft. ABSENT: distended, guarding, mass, organolmegaly, rebound, tenderness Rectal exam: PRESENT: deferred Extremities exam: PRESENT: full ROM. ABSENT: calf tenderness, clubbing, pedal edema Neurological exam: PRESENT: alert, awake, oriented to person, oriented to place , oriented to time, oriented to situation, CN II-XII grossly intact. ABSENT: motor sensory deficit Psychiatric exam: PRESENT: appropriate affect, normal mood. ABSENT: homicidal ideation, suicidal ideation Skin exam: PRESENT: dry, intact, warm. ABSENT: cyanosis, rash Results Laboratory Results: 02/28/18 04:45 02/28/18 04:45 02/28/18 02/28/18 04:45 04:45 WBC 3.5 L RBC 3.94 Hgb 12.2 Hct 35.7 L MCV 91 MCH 30.9 MCHC 34.1 RDW 14.2 H Plt Count 122 L Sodium 140.8 Potassium 3.8 Chloride 107 Carbon Dioxide 24 Anion Gap 10 BUN 13 Creatinine 0.74 Est GFR ( Amer) > 60 Est GFR (Non-Af Amer) > 60 Glucose 106 Calcium 8.4 Impressions: Chest X-Ray 02/24/18 21:03 IMPRESSION: No acute cardiopulmonary abnormalities. 2010 [employer]- All Rights Reserved Chest Ultrasound 02/24/18 22:05 IMPRESSION: No definite abscess. Mild edema and small amounts of fluid are seen in the region of concern. TECHNIQUE: LIMITATIONS: None. FINDINGS: IMPRESSION: 2010 [employer]- All Rights Reserved Assessment & Plan - Diagnosis (1) Cellulitis of chest wall Is this a current diagnosis for this admission?: Yes Plan: Unsure of cellulitis dx, now con't on coverage for UTI, skin bx pending (2) Breast cancer Qualifiers: Breast location: upper outer quadrant of breast Estrogen receptor status: unspecified Patient sex: female Laterality: left Qualified Code(s): C50.412 - Malignant neoplasm of upper-outer quadrant of left female breast Is this a current diagnosis for this admission?: Yes Plan: f/u as outpt for results (3) UTI (urinary tract infection) Qualifiers: Urinary tract infection type: acute cystitis Hematuria presence: without hematuria Qualified Code(s): N30.00 - Acute cystitis without hematuria Is this a current diagnosis for this admission?: Yes Plan: atbx con't - Time Disposition: Should be able to d/c home today
[2018-02-28] MEDS: EZETIMIBE 10 MG TABLET PO SCH (10:33)
[2018-02-28] MEDS: METOPROLOL TARTRATE 25 MG TABLET PO SCH (10:33)
[2018-02-28] MEDS: DOCUSATE SODIUM 100 MG CAPSULE PO SCH (10:33)
[2018-02-28] MEDS: LOSARTAN POTASSIUM 50 MG TABLET PO SCH (10:33)
[2018-02-28] MEDS: CIPROFLOXACIN HCL 500 MG TABLET PO SCH (10:33)
[2018-02-28] MEDS: PANTOPRAZOLE SODIUM 40 MG VIAL IV SCH (10:33)
[2018-02-28 16:32] VITALS: BP 132/36
--- NOTE | 2018-02-28 16:36 | PDOC DISCHARGE SUMMARY ---
General - Admit/Disc Date/PCP Admission Date/Primary Care Provider: 02/25/18 00:09 Discharge Date: 02/28/18 - Discharge Diagnosis (1) Cellulitis of chest wall Is this a current diagnosis for this admission?: Yes Summary: I am not entirely convinced that this was a cellulitis. I saw a picture of it in the acute phase and it looks more like a dermatitis, possibly an intertrigo candidiasis. She is on nystatin has been receiving this. A biopsy of the area was taken because it is in the region where she had her mastectomy earlier in the year. She will follow-up on the results as an outpatient. (2) Morbid obesity with BMI of 60.0-69.9, adult Is this a current diagnosis for this admission?: Yes Summary: Strongly encouraged lifestyle modification. (3) UTI (urinary tract infection) Is this a current diagnosis for this admission?: Yes Summary: She will finish a course of Cipro as an outpatient. - Additional Information Resuscitation Status: Full Code Discharge Diet: Cardiac Discharge Activity: Activity As Tolerated - do not immerse biopsy site in water until stitch removed and cleared by physician Prescriptions: Ciprofloxacin HCl [Cipro 500 mg Tablet] 250 mg PO Q12 #10 tablet Home Medications: Albuterol Sulfate [Proair HFA Inhalation Aerosol 8.5 gm MDI] 2 puff IH Q6HP PRN 02/25/18 Apixaban [Eliquis 5 mg Tablet] 5 mg PO Q12 02/25/18 Cyclobenzaprine HCl [Flexeril 10 mg Tablet] 10 mg PO HSP PRN 02/25/18 Ergocalciferol (Vitamin D2) [Vitamin D2] 50,000 unit PO WE@1000 02/25/18 Ezetimibe [Zetia 10 mg Tablet] 10 mg PO DAILY 02/25/18 Levothyroxine Sodium [Synthroid 0.088 mg Tablet] 88 mcg PO Q6AM 02/25/18 Losartan Potassium [Cozaar 100 mg Tablet] 100 mg PO DAILY 02/25/18 Metoprolol Tartrate [Lopressor 25 mg Tablet] 25 mg PO DAILY 02/25/18 Nitroglycerin [Nitrostat 0.4 mg (1/150 Gr) Tabs 25/Bottle] 1 tab SL Q5MP PRN 02/02 Nystatin [Mycostatin Topical Powder 15 gm] 1 applic TP BIDP PRN 02/25/18 Oxycodone HCl [Oxy-Ir 5 mg Tablet] 15 mg PO Q6HP PRN 02/25/18 Potassium Chloride [Klor-Con 10 Meq Capsule ER] 10 meq PO WE@1000 02/25/18 Pregabalin [Lyrica 100 mg Capsule] 100 mg PO Q12 02/25/18 Ciprofloxacin HCl [Cipro 500 mg Tablet] 250 mg PO Q12 #10 tablet 02/28/18 History of Present Illness History of Present Illness: CARMELA BRADEN is a 52 year old female with a past medical history of morbid obesity, opiate dependent chronic pain, diabetes, hypertension, atrial fibrillation on Eliquis and breast cancer status post double mastectomy September 2017. She presents with 24 hours of erythema, ecchymosis, swelling and pain about the left chest wall overlying the mastectomy scar. Patient states this is how her diagnosis of breast cancer initially presented, she denies acute trauma. She has had subjective fever and chills nausea without vomiting and rigors. In the emergency room she does have an unremarkable workup though is started on empiric antibiotics, symptomatic management and referred to the hospitalist for admission. Hospital Course Hospital Course: She was initially started on some empiric antibiotics but those have been discontinued, leaving only the Cipro that she is on for a urinary tract infection. I am not sure why the urine was checked initially. Patient has not had any urinary complaints, but her oncologist recommended continuing it to treat urine. I saw a picture of the "cellulitis" before she came to the ER, and it had more of an appearance of a candidal dermatitis, with well demarcated erythema and intertrigo area. She has been treated with nystatin topically here and has some of that at home so will be continue as needed. Her oncologist recommended a skin biopsy of the area just because that was the area where her breast tumor was found before she had mastectomy back in September of this year. She will follow-up on the results with her oncologist as an outpatient. She will get home health physical therapy set up for her. She is discharged today in good condition. Physical Exam Vital Signs: Temp Pulse Resp BP Pulse Ox 97.7 F 61 19 134/46 H 100 02/28/18 12:43 02/28/18 12:43 02/28/18 12:43 02/28/18 12:43 02/28/18 12:43 Intake & Output 02/27/18 02/28/18 03/01/18 06:59 06:59 06:59 Intake Total 5000 2623 900 Output Total 1200 1400 Balance 3800 1223 900 Weight 179.2 kg 185.7 kg General appearance: PRESENT: no acute distress, morbidly obese, well-developed, well-nourished Respiratory exam: PRESENT: decreased breath sounds - Bibasilar; secondary to body habitus and poor Inspra Tory effort, symmetrical, unlabored. ABSENT: rales , rhonchi, wheezes Cardiovascular exam: PRESENT: RRR, +S1, +S2. ABSENT: diastolic murmur, rubs, systolic murmur Pulses: PRESENT: normal dorsalis pedis pul Vascular exam: PRESENT: normal capillary refill GI/Abdominal exam: PRESENT: hernia - Large umbilical hernia, normal bowel sounds , soft. ABSENT: distended, guarding, mass, organolmegaly, rebound, tenderness Extremities exam: PRESENT: full ROM. ABSENT: calf tenderness, clubbing, pedal edema Neurological exam: PRESENT: alert, awake, oriented to person, oriented to place , oriented to time, oriented to situation Psychiatric exam: PRESENT: appropriate affect, normal mood. Skin exam: PRESENT: dry, erythema - Deep red erythema to her left chest wall extending from midway through her healed mastectomy scar around to her mid upper back; reduction in intensity of color, intact, warm. ABSENT: cyanosis, rash Results Laboratory Results: 02/28/18 04:45 02/28/18 04:45 02/28/18 02/28/18 04:45 04:45 WBC 3.5 L RBC 3.94 Hgb 12.2 Hct 35.7 L MCV 91 MCH 30.9 MCHC 34.1 RDW 14.2 H Plt Count 122 L Sodium 140.8 Potassium 3.8 Chloride 107 Carbon Dioxide 24 Anion Gap 10 BUN 13 Creatinine 0.74 Est GFR ( Amer) > 60 Est GFR (Non-Af Amer) > 60 Glucose 106 Calcium 8.4 Impressions: Chest X-Ray 02/24/18 21:03 IMPRESSION: No acute cardiopulmonary abnormalities. 2010 [employer]- All Rights Reserved Chest Ultrasound 02/24/18 22:05 IMPRESSION: No definite abscess. Mild edema and small amounts of fluid are seen in the region of concern. TECHNIQUE: LIMITATIONS: None. FINDINGS: IMPRESSION: 2010 [facility] [employer]- All Rights Reserved Qualifiers - * PATIENT BEING DISCHARGED WITH ANY OF THE FOLLOWING DIAGNOSIS: No
== END 2018-02-28 16:41 | disposition home health service (06) | DRG 603 ==
LOC: ER 20:04 → EH 02-25 00:09 → 5 02-25 01:32
PROVIDERS: ADMIT Internal Medicine; ATTEND Internal Medicine
PROC: 0HB5XZX Excision of Chest Skin, External Approach, Diagnostic (ICD-10-PCS; principal; 2018-02-26)
DX: L03.313 Cellulitis of chest wall (principal); N30.00 Acute cystitis without hematuria; K92.0 Hematemesis; Z68.44 Body mass index [BMI] 60.0-69.9, adult; C50.412 Malignant neoplasm of upper-outer quadrant of left female breast; I48.2 Chronic atrial fibrillation; E11.9 Type 2 diabetes mellitus without complications; E66.01 Morbid (severe) obesity due to excess calories; M19.90 Unspecified osteoarthritis, unspecified site; Z90.49 Acquired absence of other specified parts of digestive tract; Z90.10 Acquired absence of unspecified breast and nipple; Z87.891 Personal history of nicotine dependence; Z88.8 Allergy status to other drugs, medicaments and biological substances
CPT/HCPCS: 36415; 71045; 76604; 80048; 80053; 80202; 81001; 82272; 82962; 83036; 83605; 84439; 84443; 84481; 85025; 85027; 85610; 85730; 87040; 87086; 87088; 87186; 88305; 88312; 88342; 94799; 96365; 96366; 96367; 99291; G8978-GP; G8979-GP; J1956; J2001; J2405; J3370; J3490; J7030; J7060; S0164

== ENCOUNTER 2018-05-26 07:30 | Observation (INO) | payer MEDICARE, MEDICAID ==
[2018-05-26] MEDS ORDERED: VANCOMYCIN HCL INJ 1000 MG VIAL IV ONE (09:51)
[2018-05-26] MEDS ORDERED: ONDANSETRON HCL INJ/PF 4 MG/2 ML SDV IV ONE (09:52)
[2018-05-26] MEDS ORDERED: NORMAL SALINE 1000 ML 1,000 ML IV ONE (09:52)
--- NOTE | 2018-05-26 10:09 | ER Document Report ---
ED General - General Chief Complaint: Breast Problem Stated Complaint: SIDE PAIN Time Seen by Provider: 05/26/18 09:04 TRAVEL OUTSIDE OF THE [place] IN LAST 30 DAYS: No - HPI Notes: Patient is a 52-year-old female that presents to the emergency department for chief complaint of left chest wall cellulitis. Patient has history of bilateral mastectomy secondary to breast cancer. She states she has had a few episodes of cellulitis that are rapidly progressing since her mastectomy. Patient noted at 4 AM this morning a sharp pain in the left side of her chest. She then noticed a increased area of redness consistent with her previous cellulitis. She reports feeling sweats and chills but has not taken her temperature. She denies any associated nausea, vomiting, abdominal pain, chest pain, cough and shortness of breath. Past Medical History: Breast cancer, A. fib, diabetes Past Surgical History: Bilateral mastectomy Social History: Denies drugs alcohol and tobacco Family History: Reviewed and noncontributory for presenting illness Allergies: Reviewed, see documented allergy list. REVIEW OF SYSTEMS: CONSTITUTIONAL : No fever chills diaphoresis No recent illness EENT: No vision changes No congestion No sore throat CARDIOVASCULAR: No chest pain No palpitations RESPIRATORY: No shortness of breath No cough No difficulty breathing GASTROINTESTINAL: No abdominal pain No nausea No vomiting No diarrhea GENITOURINARY: Left breast pain No dysuria No hematuria No difficulty urinating MUSCULOSKELETAL: No back pain No leg pain No arm pain SKIN: Chest wall rash No lesions LYMPHATIC: No swollen, enlarged glands. NEUROLOGICAL: No lightheadedness No headache No weakness No paresthesias PSYCHIATRIC: No anxiety No depression PHYSICAL EXAMINATION: Vital signs reviewed, nursing noted reviewed. GENERAL: Mildly diaphoretic, obese and in mild acute distress. HEAD: Atraumatic, normocephalic. EYES: Eyes appear normal, extraocular movements intact, sclera anicteric, conjunctiva are normal. ENT: nares patent, oropharynx clear without exudates. Moist mucous membranes. NECK: Normal range of motion, supple without lymphadenopathy LUNGS: Breath sounds clear to auscultation bilaterally and equal. No wheezes rales or rhonchi. HEART: Tachycardic rate and regular rhythm without murmurs ABDOMEN: Soft, nontender, normoactive bowel sounds. No rebound, guarding, or rigidity. No masses appreciated. EXTREMITIES: Nontender, good range of motion. Trace pretibial edema bilaterally, symmetric NEUROLOGICAL: No focal neurological deficits. Moves all extremities spontaneously Motor and sensory grossly intact on exam. PSYCH: Normal mood, normal affect. SKIN: Warm, Dry, normal turgor. Large indurated area of erythema over left chest wall with Alona and tenderness to palpation - Related Data Allergies/Adverse Reactions: dronedarone [From Multaq] Allergy (Severe, Verified 05/26/18 07:32) Difficulty breathing Past Medical History - Social History Smoking Status: Unknown if Ever Smoked Family History: DM, Hypertension Patient has suicidal ideation: No Patient has homicidal ideation: No - Past Medical History Cardiac Medical History: Reports: Hx Atrial Fibrillation Pulmonary Medical History: Denies: Hx Sleep Apnea Endocrine Medical History: Reports: Hx Diabetes Mellitus Type 2 Renal/ Medical History: Denies: Hx Peritoneal Dialysis Malignancy Medical History: Reports: Hx Breast Cancer Musculoskeletal Medical History: Reports Hx Arthritis Psychiatric Medical History: Reports: Hx Depression Past Surgical History: Reports: Hx Cholecystectomy, Hx Mastectomy Physical Exam - Vital signs Vitals: Temp Pulse Resp BP Pulse Ox 98.0 F 116 H 16 154/75 H 98 05/26/18 07:37 05/26/18 07:37 05/26/18 07:37 05/26/18 07:37 05/26/18 07:37 Course - Re-evaluation Re-evalutation: 05/26/18 10:36 Vitals reviewed. Nursing notes reviewed. Patient is tachycardic and started on IV fluids. She took a home oxycodone prior to arrival and denies wanting any further pain medication. Patient will be given Zofran for nausea. She has a large area of chest wall cellulitis on the left. Given the rapid progression of her cellulitis and injury history of cancer and diabetes she is at risk for severe progression of her infection. Patient was started on vancomycin. Lab work is currently pending. 05/26/18 11:53 Labwork is unremarkable. Patient is not meeting sepsis criteria. Patient's care discussed with Yeni Lima NP who will admit for further management Laboratory 05/26/18 05/26/18 05/26/18 10:35 10:35 10:35 WBC 7.4 RBC 4.35 Hgb 13.5 Hct 39.2 MCV 90 MCH 30.9 MCHC 34.3 RDW 13.5 Plt Count 116 L Seg Neutrophils % 84.9 H Lymphocytes % 9.6 L Monocytes % 5.0 Eosinophils % 0.4 Basophils % 0.1 Absolute Neutrophils 6.3 Absolute Lymphocytes 0.7 Absolute Monocytes 0.4 Absolute Eosinophils 0.0 Absolute Basophils 0.0 Sodium 136.5 L Potassium 4.3 Chloride 106 Carbon Dioxide 23 Anion Gap 8 BUN 9 Creatinine 0.56 Est GFR ( Amer) > 60 Est GFR (Non-Af Amer) > 60 Glucose 149 H Lactic Acid 1.0 Calcium 8.6 Total Bilirubin 1.2 Direct Bilirubin 0.3 Neonat Total Bilirubin Not Reportable Neonat Direct Bilirubin Not Reportable Neonat Indirect Bili Not Reportable AST 27 ALT 17 Alkaline Phosphatase 81 Total Protein 6.5 Albumin 3.4 L 05/26/18 11:53 - Vital Signs Vital signs: Temp Pulse Resp BP Pulse Ox 98.0 F 116 H 16 154/75 H 98 05/26/18 07:37 05/26/18 07:37 05/26/18 07:37 05/26/18 07:37 05/26/18 07:37 - Laboratory Result Diagrams: 05/26/18 10:35 05/26/18 10:35 Laboratory results interpreted by me: 05/26/18 05/26/18 10:35 10:35 Plt Count 116 L Seg Neutrophils % 84.9 H Lymphocytes % 9.6 L Sodium 136.5 L Glucose 149 H Albumin 3.4 L Discharge - Discharge Clinical Impression: Cellulitis of chest wall Condition: Stable Disposition: ADMITTED INPATIENT Admitting Provider: Hospitalist Unit Admitted: Telemetry
[2018-05-26 11:02] LABS: ABSOLUTE LYMPHOCYTES (AUTO) 0.7 10^3/uL (0.5-4.7); ABSOLUTE MONOCYTES (AUTO) 0.4 10^3/uL (0.1-1.4); ABSOLUTE NEUT (AUTO) 6.3 10^3/uL (1.7-8.2); BASOPHILS % (AUTO) 0.1 % (0-2); EOSINOPHILS % (AUTO) 0.4 % (0-6); HEMATOCRIT 39.2 % (36.0-47.0); HEMOGLOBIN 13.5 g/dL (12.0-15.5); LYMPHOCYTES % (AUTO) 9.6 % (13-45); MEAN CORPUSCULAR HEMOGLOBIN 30.9 pg (27.0-33.4); MEAN CORPUSCULAR HGB CONC 34.3 g/dL (32.0-36.0); MEAN CORPUSCULAR VOLUME 90 fl (80-97); PLATELET COUNT 116 10^3/uL (150-450); RED BLOOD COUNT 4.35 10^6/uL (3.72-5.28); RED CELL DISTRIBUTION WIDTH 13.5 % (11.5-14.0); SEGMENTED NEUTROPHILS % (AUTO) 84.9 % (42-78); TOTAL CELLS COUNTED % (AUTO) 100 %; WHITE BLOOD COUNT 7.4 10^3/uL (4.0-10.5)
[2018-05-26 11:21] LABS: ALANINE AMINOTRANSFERASE 17 U/L (9-52); ALBUMIN 3.4 g/dL (3.5-5.0); ALKALINE PHOSPHATASE 81 U/L (38-126); ANION GAP 8 (5-19); ASPARTATE AMINO TRANSFERASE 27 U/L (14-36); BILIRUBIN,DIRECT 0.3 mg/dL (0.0-0.4); BILIRUBIN,TOTAL 1.2 mg/dL (0.2-1.3); BLOOD UREA NITROGEN 9 mg/dL (7-20); CALCIUM 8.6 mg/dL (8.4-10.2); CARBON DIOXIDE 23 mmol/L (22-30); CHLORIDE 106 mmol/L (98-107); GLUCOSE 149 mg/dL (75-110); POTASSIUM 4.3 mmol/L (3.6-5.0); SODIUM 136.5 mmol/L (137-145); TOTAL PROTEIN 6.5 g/dL (6.3-8.2)
[2018-05-26] MEDS ORDERED: DEXTROSE 40% GEL 15 GM TUBE PO PRN ×2 (12:56)
[2018-05-26] MEDS ORDERED: GLUCAGON,HUMAN RECOMB 1 MG INJ IM PRN (12:56)
[2018-05-26] MEDS ORDERED: DEXTROSE 50%-WATER 25 GM/50 ML DISP.SYRIN IV PRN ×2 (12:56)
[2018-05-26] MEDS: PROMETHAZINE HCL INJ 25 MG/1 ML VIAL IV PRN ×2 (13:46→19:24)
[2018-05-26] MEDS ORDERED: ENOXAPARIN SODIUM INJ 30 MG/0.3 ML DISP.SYRIN SUBCUT SCH (14:30)
[2018-05-26] MEDS ORDERED: ALBUTEROL SULFATE HFA (90 MCG/PUFF) 200 PUFF/8.5 GM MDI IH PRN (15:42)
[2018-05-26] MEDS ORDERED: NITROGLYCERIN 0.4 MG/TAB 25 TAB/BOTTLE SL PRN (15:42)
[2018-05-26] MEDS ORDERED: (PENDING PHARMACY ID) (Nystatin [Nystatin] 1 APPLIC) TOP SCH (15:45)
[2018-05-26] MEDS ORDERED: (PENDING PHARMACY ID) (Dapagliflozin Propanediol [Farxiga] 5 MG) PO SCH (15:45)
[2018-05-26] MEDS ORDERED: DILTIAZEM HCL INJ 25 MG/5 ML VIAL ONE (15:48)
[2018-05-26] MEDS: ONDANSETRON 4 MG TAB.RAPDIS PO PRN (16:00)
[2018-05-26] MEDS ORDERED: METOPROLOL TARTRATE PF/INJ 5 MG/5 ML SDV IV PRN (16:06)
[2018-05-26] MEDS ORDERED: METOPROLOL TARTRATE PF/INJ 5 MG/5 ML SDV IV ONE (16:09)
[2018-05-26] MEDS ORDERED: DILTIAZEM HCL INJ 25 MG/5 ML VIAL IV ONE (16:30)
--- NOTE | 2018-05-26 16:48 | PDOC H&P ---
History of Present Illness Admission Date/PCP: 05/26/18 12:11 Patient complains of: Cellulitis History of Present Illness: CARMELA BRADEN is a 52 year old female who presented to [facility] with erythema to the left chest wall. The patient has a PMH of Breast Ca (s/p double mastectomy), A. fib, HTN, [place], diabetes. The patient states she woke up at 4 AM with pain and erythema to her left anterior chest wall. She states she has experienced this multiple times in the last 2 years since her diagnosis of breast cancer. She is followed by Dr. Goldman for her breast cancer. The most recent flareup of ?Cellulitis/dermatitis/candidiasis? was February 2018. The patient went through a skin biopsy which was completely normal. While in the emergency department, the patient was treated with IV vancomycin by the ED MD. laboratory studies are completely benign. Vital signs within normal limits. Patient remains afebrile. Upon assessment, the patient is resting com fortably in bed. She appears in no distress. She had erythema to the covering the length of her L mastectomy scar, wrapping around posteriorly to the L axillary region. The patient states her pain is primarily located under the skin fold of her L breast. Plan to admit to hospitalist and consult Dr. Goldman. Past Medical History Cardiac Medical History: Reports: Atrial Fibrillation Pulmonary Medical History: Denies: Sleep Apnea Endocrine Medical History: Reports: Diabetes Mellitus Type 2 Malignancy Medical History: Reports: Breast Cancer Musculoskeltal Medical History: Reports: Arthritis Psychiatric Medical History: Reports: Depression Past Surgical History Past Surgical History: Reports: Cholecystectomy, Mastectomy Social History Information Source: Patient Lives with: Family Smoking Status: Unknown if Ever Smoked Frequency of Alcohol Use: None Hx Recreational Drug Use: No Drugs: None Hx Prescription Drug Abuse: No - Advance Directive Resuscitation Status: Full Code Family History Family History: None, DM, Hypertension, Malignancy Parental Family History Reviewed: Yes - mother - breast ca, dementia; father - CABG, CAD, dementia Children Family History Reviewed: NA Sibling(s) Family History Reviewed.: Yes Medication/Allergy Home Medications: Albuterol Sulfate [Proair HFA Inhalation Aerosol 8.5 gm MDI] 2 puff IH Q6HP PRN 05/26/18 Apixaban [Eliquis 5 mg Tablet] 5 mg PO Q12 05/26/18 Cyclobenzaprine HCl [Flexeril 10 mg Tablet] 10 mg PO QPMP PRN 05/26/18 Dapagliflozin Propanediol [Farxiga] 5 mg PO QAM 05/26/18 Doxycycline Hyclate 50 mg PO BID 05/26/18 Ergocalciferol (Vitamin D2) [Drisdol 50,000 unit (1.25MG) Capsule] 50,000 unit PO WE 05/26/18 Ezetimibe [Zetia 10 mg Tablet] 10 mg PO DAILY 05/26/18 Levothyroxine Sodium [Synthroid 0.088 mg Tablet] 0.088 mcg PO Q6AM 05/26/18 Losartan Potassium [Cozaar 100 mg Tablet] 100 mg PO DAILY 05/26/18 Metoprolol Tartrate [Lopressor 25 mg Tablet] 25 mg PO Q12 05/26/18 Nitroglycerin [Nitrostat 0.4 mg (1/150 Gr) Tabs 25/Bottle] 0.4 mg SL Q5MP PRN 05/26/18 Nystatin 1 applic TOP DAILY 05/26/18 Oxycodone HCl 15 mg PO Q6HP PRN 05/26/18 Potassium Chloride [Klor-Con 10 Meq Capsule ER] 10 meq PO WE 05/26/18 Pregabalin [Lyrica 100 mg Capsule] 100 mg PO Q12 05/26/18 Allergies/Adverse Reactions: dronedarone [From Multaq] Allergy (Severe, Verified 05/26/18 07:32) Difficulty breathing Review of Systems Eyes: ABSENT: visual disturbances Ears: ABSENT: hearing changes Breasts: PRESENT: as per HPI Cardiovascular: ABSENT: dyspnea on exertion Respiratory: ABSENT: dyspnea Gastrointestinal: ABSENT: abdominal pain Genitourinary: ABSENT: difficulty urinating Musculoskeletal: PRESENT: deformity, muscle weakness, other - patient c/o 'mumps' on the L lower leg Neurological: PRESENT: abnormal gait - uses walker. Physical Exam Vital Signs: Temp Pulse Resp BP Pulse Ox 98.0 F 119 H 33 H 150/83 H 96 05/26/18 14:27 05/26/18 12:47 05/26/18 15:43 05/26/18 15:43 05/26/18 15:43 Intake & Output 05/25/18 05/26/18 05/27/18 06:59 06:59 06:59 Intake Total 1000 Balance 1000 Weight 180.53 kg General appearance: PRESENT: morbidly obese Head exam: PRESENT: atraumatic Eye exam: PRESENT: conjunctiva pink, PERRLA Mouth exam: PRESENT: moist, tongue midline Neck exam: PRESENT: full ROM Respiratory exam: PRESENT: clear to auscultation son, symmetrical, unlabored Cardiovascular exam: PRESENT: irregular rhythm - AFIB Pulses: PRESENT: normal radial pulses, normal dorsalis pedis pul Vascular exam: PRESENT: normal capillary refill GI/Abdominal exam: PRESENT: soft, other - ROTUND. OBESE. ABSENT: distended, tenderness Rectal exam: PRESENT: deferred Extremities exam: PRESENT: pedal edema. ABSENT: full ROM Musculoskeletal exam: ABSENT: ambulatory, full ROM, normal inspection Neurological exam: PRESENT: alert, awake, oriented to person, oriented to place, oriented to time, oriented to situation Psychiatric exam: PRESENT: appropriate affect Skin exam: PRESENT: dry. ABSENT: normal color Adult Front & Back Image: 1 - ERYTHEMA Results Laboratory Results: 05/26/18 10:35 05/26/18 10:35 05/26/18 05/26/18 05/26/18 10:35 10:35 10:35 WBC 7.4 RBC 4.35 Hgb 13.5 Hct 39.2 MCV 90 MCH 30.9 MCHC 34.3 RDW 13.5 Plt Count 116 L Seg Neutrophils % 84.9 H Lymphocytes % 9.6 L Monocytes % 5.0 Eosinophils % 0.4 Basophils % 0.1 Absolute Neutrophils 6.3 Absolute Lymphocytes 0.7 Absolute Monocytes 0.4 Absolute Eosinophils 0.0 Absolute Basophils 0.0 Sodium 136.5 L Potassium 4.3 Chloride 106 Carbon Dioxide 23 Anion Gap 8 BUN 9 Creatinine 0.56 Est GFR ( Amer) > 60 Est GFR (Non-Af Amer) > 60 Glucose 149 H Lactic Acid 1.0 Calcium 8.6 Total Bilirubin 1.2 AST 27 ALT 17 Alkaline Phosphatase 81 Total Protein 6.5 Albumin 3.4 L Status: Imported from PACS Assessment & Plan - Diagnosis (1) Chest wall erythema Is this a current diagnosis for this admission?: Yes Plan: Unclear if this is cellulitis vs dermatitis vs candidiasis Nystatin powder to affected area Continue IV vancomycin Afebrile No leukocytosis Patient may need to follow up with dermatology (2) Atrial fibrillation Qualifiers: Atrial fibrillation type: chronic Qualified Code(s): I48.2 - Chronic atrial fibrillation Is this a current diagnosis for this admission?: Yes Plan: History of atrial fibrillation Rate controlled Continue home dose metoprolol Continue home dose Eliquis (3) Breast cancer Qualifiers: Breast location: upper outer quadrant of breast Estrogen receptor status: unspecified Patient sex: female Laterality: left Qualified Code(s): C 50.412 - Malignant neoplasm of upper-outer quadrant of left female breast Is this a current diagnosis for this admission?: Yes Plan: Status post double mastectomy, no history of chemo or radiation Management per Dr. Goldman (4) Diabetes Qualifiers: Diabetes mellitus type: type 2 Diabetes mellitus toy assembler wood insulin use: without toy assembler wood use Is this a current diagnosis for this admission?: Yes Plan: Accu-Cheks AC at bedtime Humalog insulin sliding scale Hemoglobin A1c in a.m. (5) Hypothyroid Is this a current diagnosis for this admission?: Yes Plan: Home dose synthroid - Time Time Spent: 30 to 50 Minutes Medications reviewed and adjusted accordingly: Yes Anticipated discharge: Home Within: within 72 hours - Inpatient Certification Based on my medical assessment, after consideration of the patient's comorbidities, presenting symptoms, or acuity I expect that the services needed warrant INPATIENT care.: Yes I certify that my determination is in accordance with my understanding of Medicare's requirements for reasonable and necessary INPATIENT services [42 CFR 412.3e].: Yes Medical Necessity: Risk of Complication if Not Cared For in Hospital
[2018-05-26] MEDS ORDERED: LORAZEPAM INJ 2 MG/1 ML VIAL IV PRN (16:51)
[2018-05-26] MEDS ORDERED: VANCOMYCIN HCL 0 MG in DEXTROSE 5%-WATER 250 ML IV NR (17:00)
[2018-05-26] MEDS ORDERED: METOPROLOL TARTRATE 25 MG TABLET PO SCH (17:00)
[2018-05-26] MEDS ORDERED: (PENDING PHARMACY ID) (Doxycycline Hyclate [Doxycycline Hyclate] 50 MG) PO SCH (18:00)
[2018-05-26] MEDS: APIXABAN 5 MG TABLET PO SCH (19:24)
[2018-05-26] MEDS: PREGABALIN 100 MG CAPSULE PO SCH (19:43)
[2018-05-26] MEDS: LOSARTAN POTASSIUM 50 MG TABLET PO SCH (19:44)
[2018-05-26] MEDS: LEVOTHYROXINE SODIUM 0.088 MG TABLET PO SCH (19:44)
[2018-05-26] MEDS: EZETIMIBE 10 MG TABLET PO SCH (19:44)
[2018-05-26] MEDS: INSULIN LISPRO 100 UNIT/ML 3 ML VIAL SUBCUT SCH ×2 (19:45→22:02)
[2018-05-26] MEDS ORDERED: ACETAMINOPHEN 325 MG TABLET PO PRN (20:37)
[2018-05-26] MEDS ORDERED: METOPROLOL TARTRATE 25 MG TABLET PO ONE (20:45)
[2018-05-26] MEDS: VANCOMYCIN HCL 1,500 MG in DEXTROSE 5%-WATER 250 ML IV SCH (22:16)
[2018-05-26] MEDS ORDERED: DOXYCYCLINE HYCLATE INJ 100 MG VIAL ONE (23:48)
[2018-05-26] MEDS ORDERED: DOXYCYCLINE HYCLATE 100 MG TABLET PO ONE (23:49)
[2018-05-27] MEDS: DOXYCYCLINE HYCLATE 100 MG TABLET PO SCH ×3 (00:41→22:40)
[2018-05-27] MEDS: VANCOMYCIN HCL 1,500 MG in DEXTROSE 5%-WATER 250 ML IV SCH ×2 (02:58→09:57)
[2018-05-27 05:01] LABS: ABSOLUTE LYMPHOCYTES (AUTO) 0.7 10^3/uL (0.5-4.7); ABSOLUTE MONOCYTES (AUTO) 0.3 10^3/uL (0.1-1.4); ABSOLUTE NEUT (AUTO) 2.9 10^3/uL (1.7-8.2); BASOPHILS % (AUTO) 0.4 % (0-2); EOSINOPHILS % (AUTO) 0.5 % (0-6); HEMATOCRIT 36.3 % (36.0-47.0); HEMOGLOBIN 12.5 g/dL (12.0-15.5); MEAN CORPUSCULAR HEMOGLOBIN 31.1 pg (27.0-33.4); MEAN CORPUSCULAR HGB CONC 34.3 g/dL (32.0-36.0); MEAN CORPUSCULAR VOLUME 90 fl (80-97); MONOCYTES % (AUTO) 6.4 % (3-13); RED BLOOD COUNT 4.01 10^6/uL (3.72-5.28); RED CELL DISTRIBUTION WIDTH 13.1 % (11.5-14.0); SEGMENTED NEUTROPHILS % (AUTO) 75.7 % (42-78); TOTAL CELLS COUNTED % (AUTO) 100 %; WHITE BLOOD COUNT 3.9 10^3/uL (4.0-10.5)
[2018-05-27 05:15] LABS: ALANINE AMINOTRANSFERASE 18 U/L (9-52); ALKALINE PHOSPHATASE 64 U/L (38-126); ANION GAP 7 (5-19); ASPARTATE AMINO TRANSFERASE 27 U/L (14-36); BILIRUBIN,DIRECT 0.3 mg/dL (0.0-0.4); BILIRUBIN,TOTAL 1.7 mg/dL (0.2-1.3); BLOOD UREA NITROGEN 12 mg/dL (7-20); CALCIUM 8.1 mg/dL (8.4-10.2); CARBON DIOXIDE 24 mmol/L (22-30); CHLORIDE 105 mmol/L (98-107); GLUCOSE 136 mg/dL (75-110); POTASSIUM 3.9 mmol/L (3.6-5.0); SODIUM 136.1 mmol/L (137-145)
[2018-05-27 05:39] LABS: PLATELET COUNT 93 10^3/uL (150-450)
[2018-05-27] MEDS: APIXABAN 5 MG TABLET PO SCH ×2 (05:41→17:27)
[2018-05-27] MEDS: PREGABALIN 100 MG CAPSULE PO SCH ×2 (05:41→17:27)
[2018-05-27] MEDS: LEVOTHYROXINE SODIUM 0.088 MG TABLET PO SCH (05:41)
[2018-05-27] MEDS: INSULIN LISPRO 100 UNIT/ML 3 ML VIAL SUBCUT SCH ×4 (07:52→22:37)
[2018-05-27] MEDS: LOSARTAN POTASSIUM 50 MG TABLET PO SCH (09:56)
[2018-05-27] MEDS ORDERED: NYSTATIN TOPICAL POWDER 15 GM TP SCH (10:00)
[2018-05-27] MEDS: EZETIMIBE 10 MG TABLET PO SCH (10:01)
[2018-05-27 10:39] LABS: VANCOMYCIN,TROUGH 14.4 ug/mL (5.0-20.0)
--- NOTE | 2018-05-27 11:47 | PDOC CONSULTATION ---
Consultation Consult Date: 05/27/18 Consult reason:: Hematology/Oncology consultation was requested for patient with recurrent cellulitis and history of breast cancer. History of Present Illness Admission Date/PCP: 05/26/18 12:11 History of Present Illness: CARMELA BRADEN is a 52 year old female who is followed by Dr. Wilson for her history of left breast cancer. She was first found to have breast cancer during an evaluation for cellulitis. This was an early stage breast cancer, and was treated with bilateral mastectomy. Her mother was also diagnosed with breast cancer. Patient states that she was treated for cellulitis a second time and skin biopsy was performed at that time which was negative for cancer. However, she now has the same symptoms of cellulitis in the same area of her body as previous. She wants to know why it continues to happen and what can be done in the future to prevent this. She currently has PT/OT coming to her home to help her with mobility and lymphedema. She states that the therapist also has found hard lumps in her left monteiro. Prior plain X-rays of this area were negative, but again, she is very worried that this may be recurrent cancer. Past Medical History Cardiac Medical History: Reports: Atrial Fibrillation Pulmonary Medical History: Denies: Sleep Apnea Endocrine Medical History: Reports: Diabetes Mellitus Type 2 Malignancy Medical History: Reports: Breast Cancer Musculoskeltal Medical History: Reports: Arthritis Psychiatric Medical History: Reports: Depression Past Surgical History Past Surgical History: Reports: Cholecystectomy, Mastectomy Social History Lives with: Family Smoking Status: Former Smoker Frequency of Alcohol Use: None Hx Recreational Drug Use: No Drugs: None Hx Prescription Drug Abuse: No - Advance Directive Resuscitation Status: Full Code Family History Family History: None, DM, Hypertension, Malignancy Parental Family History Reviewed: Yes - Mother with breast cancer. Children Family History Reviewed: No Sibling(s) Family History Reviewed.: Yes Medication/Allergy Home Medications: Albuterol Sulfate [Proair HFA Inhalation Aerosol 8.5 gm MDI] 2 puff IH Q6HP PRN 05/26/18 Apixaban [Eliquis 5 mg Tablet] 5 mg PO Q12 05/26/18 Cyclobenzaprine HCl [Flexeril 10 mg Tablet] 10 mg PO QPMP PRN 05/26/18 Dapagliflozin Propanediol [Farxiga] 5 mg PO QAM 05/26/18 Doxycycline Hyclate 50 mg PO BID 05/26/18 Ergocalciferol (Vitamin D2) [Drisdol 50,000 unit (1.25MG) Capsule] 50,000 unit PO WE 05/26/18 Ezetimibe [Zetia 10 mg Tablet] 10 mg PO DAILY 05/26/18 Levothyroxine Sodium [Synthroid 0.088 mg Tablet] 0.088 mcg PO Q6AM 05/26/18 Losartan Potassium [Cozaar 100 mg Tablet] 100 mg PO DAILY 05/26/18 Metoprolol Tartrate [Lopressor 25 mg Tablet] 25 mg PO Q12 05/26/18 Nitroglycerin [Nitrostat 0.4 mg (1/150 Gr) Tabs 25/Bottle] 0.4 mg SL Q5MP PRN 05/26/18 Nystatin 1 applic TOP DAILY 05/26/18 Oxycodone HCl 15 mg PO Q6HP PRN 05/26/18 Potassium Chloride [Klor-Con 10 Meq Capsule ER] 10 meq PO WE 05/26/18 Pregabalin [Lyrica 100 mg Capsule] 100 mg PO Q12 05/26/18 Allergies/Adverse Reactions: dronedarone [From Multaq] Allergy (Severe, Verified 05/26/18 07:32) Difficulty breathing Review of Systems Constitutional: ABSENT: fever(s), headache(s) Eyes: ABSENT: visual disturbances Ears: ABSENT: hearing changes Nose, Mouth, and Throat: ABSENT: sore throat Cardiovascular: ABSENT: chest pain Respiratory: PRESENT: dyspnea Gastrointestinal: ABSENT: constipation, nausea Genitourinary: ABSENT: dysuria Musculoskeletal: PRESENT: back pain Integumentary: PRESENT: rash Neurological: PRESENT: weakness Psychiatric: PRESENT: anxiety Hematologic/Lymphatic: ABSENT: lymphadenopathy Physical Exam Vital Signs: Temp Pulse Resp BP Pulse Ox 98.9 F 102 H 18 118/47 L 97 05/27/18 08:00 05/27/18 08:00 05/27/18 08:00 05/27/18 08:00 05/27/18 08:00 Intake & Output 05/26/18 05/27/18 05/28/18 06:59 06:59 06:59 Intake Total 1500 Balance 1500 Weight 180.5 kg General appearance: PRESENT: morbidly obese Exam: 52 year old female. Head exam: PRESENT: normocephalic Eye exam: PRESENT: EOMI Mouth exam: PRESENT: neck supple, tongue midline Neck exam: ABSENT: lymphadenopathy, tenderness Respiratory exam: PRESENT: clear to auscultation son, unlabored Cardiovascular exam: PRESENT: irregular rhythm GI/Abdominal exam: PRESENT: soft, other - Large hernia. Very difficult to assess otherwise. Extremities exam: PRESENT: other - Bilateral edema but otherwise, again difficult to assess due to patient's size. Neurological exam: PRESENT: alert, awake, oriented to person, oriented to place, oriented to time, oriented to situation Psychiatric exam: PRESENT: appropriate affect Skin exam: PRESENT: other - Erythema in the left axilla/back pannus. She is s/p bilateral mastectomy. Results Laboratory Results: 05/27/18 04:20 05/27/18 04:20 05/27/18 05/27/18 04:20 04:20 WBC 3.9 L RBC 4.01 Hgb 12.5 Hct 36.3 MCV 90 MCH 31.1 MCHC 34.3 RDW 13.1 Plt Count 93 L Seg Neutrophils % 75.7 Lymphocytes % 17.0 Monocytes % 6.4 Eosinophils % 0.5 Basophils % 0.4 Absolute Neutrophils 2.9 Absolute Lymphocytes 0.7 Absolute Monocytes 0.3 Absolute Eosinophils 0.0 Absolute Basophils 0.0 Sodium 136.1 L Potassium 3.9 Chloride 105 Carbon Dioxide 24 Anion Gap 7 BUN 12 Creatinine 0.70 Est GFR ( Amer) > 60 Est GFR (Non-Af Amer) > 60 Glucose 136 H Calcium 8.1 L Total Bilirubin 1.7 H AST 27 ALT 18 Alkaline Phosphatase 64 Total Protein 6.0 L Albumin 3.0 L 05/27/18 04:20 NT-Pro-B Natriuret Pep 812 Assessment & Plan - Diagnosis (1) Breast cancer, left Qualifiers: Breast location: overlapping sites of breast Estrogen receptor status: unspecified Patient sex: female Qualified Code(s): C50.812 - Malignant neoplasm of overlapping sites of left female breast Is this a current diagnosis for this admission?: Yes Plan: Patient is very concerned about recurrence. I will check CT C/A/P and Bone scan. I believe this is reasonable, as her cancer was initially associated with skin changed, similar to current situation. (2) Cellulitis of chest wall Is this a current diagnosis for this admission?: Yes Plan: Agree with antibiotic management, per primary team. We discussed the fact that sometimes anatomy and lymphedema can cause recurrent infections such as this. She is working at home with PT/OT. (3) Atrial fibrillation Qualifiers: Atrial fibrillation type: chronic Qualified Code(s): I48.2 - Chronic atrial fibrillation Is this a current diagnosis for this admission?: Yes Plan: Stable. Continue Eliquis. No current evidence of bleeding or clotting problems. (4) Morbid obesity with BMI of 60.0-69.9, adult Is this a current diagnosis for this admission?: Yes Plan: Sadly, this may be affecting her overall health and recurrent infections more than she is willing to admit. Would place her on calorie restriction and try to increase activity as much as possible.
[2018-05-27] MEDS ORDERED: SODIUM POLYSTYRENE SULFONATE 15 GM/60 ML PO ONE (12:12)
--- NOTE | 2018-05-27 14:13 | PDOC PROGRESS REPORT ---
Subjective Progress Note for:: 05/27/18 Subjective:: CARMELA BRADEN is a 52 year old female who presented to [facility] with erythema to the left chest wall. The patient has a PMH of Breast Ca (s/p double mastectomy), A. fib, HTN, [place], diabetes. The patient was seen on rounds this morning. She is resting comfortably in bed. Her L chest wall appears less erathematous than yesterday but the large amount of skin in the axillary region still appears beefy-red. There are some satellite papules in the skin folds. There is no drainage or malodorous discharge. The patient states the area is tender to touch. The patient is afebrile and there is no evidence of leukocytosis. Her clinical presentation is suggestive of candidiasis intertrigo, not cellulitis. Plan to switch from IV vancomycin to topical clotrimazole. Pending radiology studies today (ordered by Dr. Orozco), the patient will likely be discharged home tomorrow. Reason For Visit: CELLULITIS Physical Exam Vital Signs: Temp Pulse Resp BP Pulse Ox 98.7 F 103 H 18 119/51 L 98 05/27/18 12:00 05/27/18 12:00 05/27/18 12:00 05/27/18 12:00 05/27/18 12:00 Intake & Output 05/26/18 05/27/18 05/28/18 06:59 06:59 06:59 Intake Total 1500 250 Balance 1500 250 Weight 180.5 kg General appearance: PRESENT: morbidly obese Eye exam: PRESENT: conjunctiva pink, PERRLA Mouth exam: PRESENT: moist, tongue midline Neck exam: PRESENT: full ROM Respiratory exam: PRESENT: clear to auscultation son, symmetrical, unlabored Cardiovascular exam: PRESENT: irregular rhythm - AFIB Pulses: PRESENT: normal radial pulses, +1 pedal pulses bilateral - DIFFICULT TO PALPATE DUE TO BODY HABITUS Vascular exam: PRESENT: normal capillary refill GI/Abdominal exam: PRESENT: soft, other - ROTUND. OBESE. ABSENT: distended, tenderness Rectal exam: PRESENT: deferred Extremities exam: PRESENT: pedal edema, +1 edema. ABSENT: full ROM Musculoskeletal exam: ABSENT: ambulatory - USES ELECTRIC WHEELCHAIR, full ROM Neurological exam: PRESENT: alert, awake, oriented to person, oriented to place, oriented to time, oriented to situation Psychiatric exam: PRESENT: appropriate affect Skin exam: PRESENT: erythema - L CHEST WALL WRAPPING AROUND TO L AXILLARY AREA Results Laboratory Results: 05/27/18 04:20 05/27/18 04:20 05/27/18 05/27/18 04:20 04:20 WBC 3.9 L RBC 4.01 Hgb 12.5 Hct 36.3 MCV 90 MCH 31.1 MCHC 34.3 RDW 13.1 Plt Count 93 L Seg Neutrophils % 75.7 Lymphocytes % 17.0 Monocytes % 6.4 Eosinophils % 0.5 Basophils % 0.4 Absolute Neutrophils 2.9 Absolute Lymphocytes 0.7 Absolute Monocytes 0.3 Absolute Eosinophils 0.0 Absolute Basophils 0.0 Sodium 136.1 L Potassium 3.9 Chloride 105 Carbon Dioxide 24 Anion Gap 7 BUN 12 Creatinine 0.70 Est GFR ( Amer) > 60 Est GFR (Non-Af Amer) > 60 Glucose 136 H Calcium 8.1 L Total Bilirubin 1.7 H AST 27 ALT 18 Alkaline Phosphatase 64 Total Protein 6.0 L Albumin 3.0 L 05/27/18 04:20 NT-Pro-B Natriuret Pep 812 Status: Imported from PACS Assessment & Plan - Diagnosis (1) Chest wall erythema Is this a current diagnosis for this admission?: Yes Plan: Most likely candidiasis intertrigo - moist, beefy-red homogenous patch within the skin fold Possibly lymphedema Initiate clotrimazole cream BID Discontinue IV vancomycin Afebrile No leukocytosis Encourage daily cleansing of the area and keeping the affected area dry with drying powders, placing absorbent materials (towels/cloths) in the affected skin fold, and weight loss Patient will need to follow up with dermatology (2) Atrial fibrillation Qualifiers: Atrial fibrillation type: chronic Qualified Code(s): I48.2 - Chronic atrial fibrillation Is this a current diagnosis for this admission?: Yes Plan: History of atrial fibrillation Rate controlled Continue home dose metoprolol Continue home dose Eliquis (3) Breast cancer Qualifiers: Breast location: upper outer quadrant of breast Estrogen receptor status: unspecified Patient sex: female Laterality: left Qualified Code(s): C50.412 - Malignant neoplasm of upper-outer quadrant of left female breast Is this a current diagnosis for this admission?: Yes Plan: Status post double mastectomy, no history of chemo or radiation Patient of Dr. Jayaraam Consulted Heme/Onc Recommend bone scan for painful nodules on LLE (4) Diabetes Qualifiers: Diabetes mellitus type: type 2 Diabetes mellitus buttermaker insulin use: without buttermaker use Is this a current diagnosis for this admission?: Yes Plan: Accu-Cheks AC at bedtime Humalog insulin sliding scale Hemoglobin A1c 6.2% (5) Hypothyroid Is this a current diagnosis for this admission?: Yes Plan: Home dose synthroid Check TSH level - Time Time Spent with patient: 15-24 minutes Medications reviewed and adjusted accordingly: Yes Anticipated discharge: Home Within: within 48 hours - Inpatient Certification Based on my medical assessment, after consideration of the patient's comorbidities, presenting symptoms, or acuity I expect that the services needed warrant INPATIENT care.: Yes I certify that my determination is in accordance with my understanding of Medicare's requirements for reasonable and necessary INPATIENT services [42 CFR 412.3e].: Yes Medical Necessity: Risk of Complication if Not Cared For in Hospital - Plan Summary Plan Summary: D/C VANCOMYCIN. CLOTRIMAZOLE CREAM. BONE SCAN. LIKELY D/C TOMORROW.
[2018-05-27] MEDS: ONDANSETRON 4 MG TAB.RAPDIS PO PRN (17:26)
[2018-05-27] MEDS: CLOTRIMAZOLE 1% CREAM 15 GM TP SCH ×2 (17:27→18:19)
[2018-05-27] MEDS: METOPROLOL TARTRATE 25 MG TABLET PO SCH (19:58)
[2018-05-27] MEDS: PROMETHAZINE HCL INJ 25 MG/1 ML VIAL IV PRN (19:58)
[2018-05-28] MEDS: PREGABALIN 100 MG CAPSULE PO SCH ×2 (05:53→18:09)
[2018-05-28] MEDS: APIXABAN 5 MG TABLET PO SCH ×2 (05:53→18:09)
[2018-05-28] MEDS: METOPROLOL TARTRATE 25 MG TABLET PO SCH ×2 (05:53→18:09)
[2018-05-28] MEDS: LEVOTHYROXINE SODIUM 0.088 MG TABLET PO SCH (05:53)
[2018-05-28] MEDS: INSULIN LISPRO 100 UNIT/ML 3 ML VIAL SUBCUT SCH ×4 (08:59→21:21)
[2018-05-28] MEDS: DOXYCYCLINE HYCLATE 100 MG TABLET PO SCH ×2 (09:20→21:21)
[2018-05-28] MEDS: EZETIMIBE 10 MG TABLET PO SCH (09:20)
[2018-05-28] MEDS: CLOTRIMAZOLE 1% CREAM 15 GM TP SCH ×2 (09:24→18:09)
[2018-05-28] MEDS: LOSARTAN POTASSIUM 50 MG TABLET PO SCH (18:08)
--- NOTE | 2018-05-28 22:39 | PDOC PROGRESS REPORT ---
Subjective Progress Note for:: 05/28/18 Subjective:: CARMELA BRADEN is a 52 year old female who [facility] the left chest wall. The patient has a PMH of Breast Ca (s/p double mastectomy), A. fib, HTN, [place], diabetes. The patient was seen on rounds this afternoon. She is resting comfortably in b ed. Her L chest wall appears erathematous. The large amount of skin in the axillary region still appears beefy-red. There are some satellite papules in the skin folds. There is no drainage or malodorous discharge. The patient states the area is tender to touch. She has noticed no change since since initiation of the clotrimazole. The patient is afebrile. No leukocytosis. Her clinical presentation is suggestive of candidiasis intertrigo, not cellulitis. One set of blood cultures (+) for group B beta STREP. Likely stemming from open wound on chest wall in a diabetic patient. Plan to initiate PO ceftin. Pending radiology studies tomorrow (ordered by Dr. Orozco), the patient will likely be discharged home tomorrow. Reason For Visit: CELLULITIS Physical Exam Vital Signs: Temp Pulse Resp BP Pulse Ox 98.8 F 74 18 121/59 L 98 05/28/18 15:29 05/28/18 15:29 05/28/18 15:29 05/28/18 16:36 05/28/18 15:29 Intake & Output 05/27/18 05/28/18 05/29/18 06:59 06:59 06:59 Intake Total 1500 1840 1005 Balance 1500 1840 1005 Weight 180.5 kg 186 kg General appearance: PRESENT: morbidly obese Eye exam: PRESENT: conjunctiva pink, PERRLA Ear exam: PRESENT: normal external ear exam Mouth exam: PRESENT: moist, tongue midline, other Neck exam: PRESENT: full ROM Respiratory exam: PRESENT: clear to auscultation son, decreased breath sounds - b/l bases, symmetrical, unlabored Cardiovascular exam: PRESENT: irregular rhythm - afib Pulses: PRESENT: normal radial pulses GI/Abdominal exam: PRESENT: normal bowel sounds, soft, tenderness - to affected area Rectal exam: PRESENT: deferred Extremities exam: PRESENT: full ROM Musculoskeletal exam: PRESENT: full ROM. ABSENT: ambulatory - due to her weight Neurological exam: PRESENT: alert, awake, oriented to person, oriented to place, oriented to time, oriented to situation Results Laboratory Results: 05/27/18 04:20 05/27/18 04:20 05/26/18 10:35 Blood Blood Culture - Final Group B Beta Streptococcus 05/27/18 04:20 NT-Pro-B Natriuret Pep 812 Status: Imported from PACS Assessment & Plan - Diagnosis (1) Chest wall erythema Is this a current diagnosis for this admission?: Yes Plan: Most likely candidiasis intertrigo - moist, beefy-red homogenous patch within the skin fold Possibly lymphedema Continue clotrimazole cream BID Afebrile No leukocytosis Encourage daily cleansing of the area and keeping the affected area dry with drying powders, placing absorbent materials (towels/cloths) in the affected skin fold, and weight loss Patient will need to follow up with dermatology (2) Atrial fibrillation Qualifiers: Atrial fibrillation type: chronic Qualified Code(s): I48.2 - Chronic atrial fibrillation Is this a current diagnosis for this admission?: Yes Plan: History of atrial fibrillation Rate controlled Continue home dose metoprolol Continue home dose Eliquis (3) Breast cancer Qualifiers: Breast location: upper outer quadrant of breast Estrogen receptor status: unspecified Patient sex: female Laterality: left Qualified Code(s): C50.412 - Malignant neoplasm of upper-outer quadrant of left female breast Is this a current diagnosis for this admission?: Yes Plan: Status post double mastectomy, no history of chemo or radiation Patient of Dr. Goldman Consulted Heme/Onc Dr. Orozco recommend bone scan for painful nodules on LLE (4) Diabetes Qualifiers: Diabetes mellitus type: type 2 Diabetes mellitus longterm insulin use: without longterm use Is this a current diagnosis for this admission?: Yes Plan: Accu-Cheks AC at bedtime Humalog insulin sliding scale Hemoglobin A1c 6.2% (5) Hypothyroid Is this a current diagnosis for this admission?: Yes Plan: Home dose synthroid Check TSH level in AM (6) Group B streptococcal infection Is this a current diagnosis for this admission?: Yes Plan: One set of positive blood cultures Likely stemming from diabetic wound originating from L chest wall C&S resulted Start on PO Ceftin - Time Time Spent with patient: 15-24 minutes Smoking Cessation Education: 3 to 10 minutes - Inpatient Certification Based on my medical assessment, after consideration of the patient's comorbidities, presenting symptoms, or acuity I expect that the services needed warrant INPATIENT care.: Yes I certify that my determination is in accordance with my understanding of Medicare's requirements for reasonable and necessary INPATIENT services [42 CFR 412.3e].: Yes Medical Necessity: Need for IV Antibiotics
[2018-05-29] MEDS: LEVOTHYROXINE SODIUM 0.088 MG TABLET PO SCH (05:21)
[2018-05-29] MEDS: PREGABALIN 100 MG CAPSULE PO SCH ×2 (05:21→17:49)
[2018-05-29] MEDS: METOPROLOL TARTRATE 25 MG TABLET PO SCH ×2 (05:21→17:48)
[2018-05-29] MEDS: APIXABAN 5 MG TABLET PO SCH ×2 (05:21→17:48)
[2018-05-29] MEDS: INSULIN LISPRO 100 UNIT/ML 3 ML VIAL SUBCUT SCH ×2 (08:42→11:14)
--- NOTE | 2018-05-29 08:46 | PDOC PROGRESS REPORT ---
Subjective Progress Note for:: 05/29/18 Subjective:: No acute events overnight awaiting imaging today Reason For Visit: CELLULITIS Physical Exam Vital Signs: Temp Pulse Resp BP Pulse Ox 98.0 F 83 16 130/73 H 98 05/29/18 07:59 05/29/18 07:59 05/29/18 07:59 05/29/18 07:59 05/29/18 07:59 Intake & Output 05/28/18 05/29/18 05/30/18 06:59 06:59 06:59 Intake Total 1840 1655 Balance 1840 1655 Weight 186 kg 186 kg General appearance: PRESENT: no acute distress, well-developed, well-nourished Head exam: PRESENT: atraumatic, normocephalic Eye exam: PRESENT: conjunctiva pink, EOMI, PERRLA. ABSENT: scleral icterus Ear exam: PRESENT: normal external ear exam Mouth exam: PRESENT: moist, tongue midline Neck exam: ABSENT: carotid bruit, JVD, lymphadenopathy, thyromegaly Respiratory exam: PRESENT: clear to auscultation son. ABSENT: rales, rhonchi, wheezes Cardiovascular exam: PRESENT: RRR. ABSENT: diastolic murmur, rubs, systolic murmur Pulses: PRESENT: normal dorsalis pedis pul Vascular exam: PRESENT: normal capillary refill GI/Abdominal exam: PRESENT: normal bowel sounds, soft. ABSENT: distended, guarding, mass, organolmegaly, rebound, tenderness Rectal exam: PRESENT: deferred Extremities exam: PRESENT: full ROM. ABSENT: calf tenderness, clubbing, pedal edema Neurological exam: PRESENT: alert, awake, oriented to person, oriented to place, oriented to time, oriented to situation, CN II-XII grossly intact. ABSENT: motor sensory deficit Psychiatric exam: PRESENT: appropriate affect, normal mood. ABSENT: homicidal ideation, suicidal ideation Skin exam: PRESENT: dry, intact, warm. ABSENT: cyanosis, rash Results Laboratory Results: 05/27/18 04:20 05/27/18 04:20 05/26/18 10:35 Blood Blood Culture - Final Group B Beta Streptococcus 05/27/18 04:20 NT-Pro-B Natriuret Pep 812 Assessment & Plan - Diagnosis (1) Chest wall erythema Is this a current diagnosis for this admission?: Yes Plan: Unsure of cause, she does have chronic irritation with panniculitis, but may also be cellulitis, currently on antibiotics (2) Breast cancer, left Qualifiers: Breast location: overlapping sites of breast Estrogen receptor status: unspecified Patient sex: female Qualified Code(s): C50.812 - Malignant neoplasm of overlapping sites of left female breast Is this a current diagnosis for this admission?: Yes Plan: 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 So this is not related to the breast cancer itself.
[2018-05-29] MEDS: EZETIMIBE 10 MG TABLET PO SCH (10:48)
[2018-05-29] MEDS: LOSARTAN POTASSIUM 50 MG TABLET PO SCH (10:48)
[2018-05-29] MEDS: DOXYCYCLINE HYCLATE 100 MG TABLET PO SCH (10:48)
[2018-05-29] MEDS: CLOTRIMAZOLE 1% CREAM 15 GM TP SCH ×2 (10:51→17:48)
--- NOTE | 2018-05-29 16:02 | RADIOLOGY REPORT (SQ) ---
EXAM DESCRIPTION: NM WHOLE BODY BONE SCAN COMPLETED DATE/TIME: 05/29/2018 3:28 pm REASON FOR STUDY: restaging breast cancer COMPARISON: No available imaging studies for comparison. RADIONUCLIDE AND DOSE: 22.9 millicuries Tc99m MDP. The route of agent administration: Intravenous. ADDITIONAL DRUGS AND DOSES: None. TECHNIQUE: Routine delayed images at 3 hour post radionuclide injection acquired of the bony skeleto n including anterior and posterior whole-body projections and additional focused images as needed. LIMITATIONS: Body habitus. FINDINGS: BONES: Normal visualization without significant areas of photopenia or increased bony upta ke of radiopharmaceutical. Degenerative changes in both shoulders. KIDNEYS: Symmetric excretion without obstruction. OTHER: No other significant finding. IMPRESSION: No evidence of metastatic disease. COMMENT: Quality measure 147: No available prior imaging studies for comparison TECHNICAL DOCUMENTATION: JOB ID: [id number] [employer]- All Rights Reserved Reading location - IP/workstation name: [email or web address]
[2018-05-29 18:09] VITALS: BP 121/59
[2018-05-29] MEDS ORDERED: CEPHALEXIN 500 MG CAPSULE PO SCH (22:00)
--- NOTE | 2018-05-31 09:39 | PDOC DISCHARGE SUMMARY ---
General - Admit/Disc Date/PCP Admission Date/Primary Care Provider: 05/26/18 12:11 Discharge Date: 05/29/18 - Discharge Diagnosis (1) Chest wall erythema Is this a current diagnosis for this admission?: Yes (2) Atrial fibrillation Is this a current diagnosis for this admission?: Yes (3) Breast cancer Is this a current diagnosis for this admission?: Yes (4) Diabetes Is this a current diagnosis for this admission?: Yes (5) Hypothyroid Is this a current diagnosis for this admission?: Yes (6) Group B streptococcal infection Is this a current diagnosis for this admission?: Yes - Additional Information Resuscitation Status: Full Code Discharge Diet: As Tolerated Discharge Activity: Activity As Tolerated Prescriptions: Cephalexin Monohydrate [Keflex 500 mg Capsule] 500 mg PO Q12 10 Days #20 capsule Clotrimazole 1% Cream [Lotrimin 1% Cream 15 gm] 1 applic TP BID #1 tube Home Medications: Albuterol Sulfate [Proair HFA Inhalation Aerosol 8.5 gm MDI] 2 puff IH Q6HP PRN 05/26/18 Apixaban [Eliquis 5 mg Tablet] 5 mg PO Q12 05/26/18 Cyclobenzaprine HCl [Flexeril 10 mg Tablet] 10 mg PO QPMP PRN 05/26/18 Dapagliflozin Propanediol [Farxiga] 5 mg PO QAM 05/26/18 Doxycycline Hyclate 50 mg PO BID 05/26/18 Ergocalciferol (Vitamin D2) [Drisdol 50,000 unit (1.25MG) Capsule] 50,000 unit PO WE 05/26/18 Ezetimibe [Zetia 10 mg Tablet] 10 mg PO DAILY 05/26/18 Levothyroxine Sodium [Synthroid 0.088 mg Tablet] 0.088 mcg PO Q6AM 05/26/18 Losartan Potassium [Cozaar 100 mg Tablet] 100 mg PO DAILY 05/26/18 Metoprolol Tartrate [Lopressor 25 mg Tablet] 25 mg PO Q12 05/26/18 Nitroglycerin [Nitrostat 0.4 mg (1/150 Gr) Tabs 25/Bottle] 0.4 mg SL Q5MP PRN 05/26/18 Oxycodone HCl 15 mg PO Q6HP PRN 05/26/18 Potassium Chloride [Klor-Con 10 Meq Capsule ER] 10 meq PO WE 05/26/18 Pregabalin [Lyrica 100 mg Capsule] 100 mg PO Q12 05/26/18 Cephalexin Monohydrate [Keflex 500 mg Capsule] 500 mg PO Q12 10 Days #20 capsule 05/29/18 Clotrimazole 1% Cream [Lotrimin 1% Cream 15 gm] 1 applic TP BID #1 tube 05/29/18 History of Present Illness History of Present Illness: CARMELA BRADEN is a 52 year old female who presented to [facility] with erythema to the left chest wall. The patient has a PMH of Breast Ca (s/p double mastectomy), A. fib, HTN, SD, diabetes. The patient states she woke up at 4 AM with pain and erythema to her left anterior chest wall. She states she has experienced this multiple times in the last 2 years since her diagnosis of breast cancer. She is followed by Dr. Goldman for her breast cancer. The most recent flareup of ?Cellulitis/dermatitis/candidiasis? was February 2018. The patient went through a skin biopsy which was completely normal. While in the emergency department, the patient was treated with IV vancomycin by the ED MD. laboratory studies are completely benign. Vital signs within normal limits. Patient remains afebrile. Upon assessment, the patient is resting comfortably in bed. She appears in no distress. She had erythema to the covering the length of her L mastectomy scar, wrapping around posteriorly to the L axillary region. The patient states her pain is primarily located under the skin fold of her L breast. Plan to admit to hospitalist and consult Dr. Goldman. Hospital Course Hospital Course: CARMELA BRADEN is a 52 year old female who presented to [facility] with erythema to the left chest wall. The patient has a PMH of Breast Ca (s/p double mastectomy), A. fib, HTN, SD, diabetes. The patient was initially treated with vancomycin with the working diagnosis of her skin condition being cellulitis.The patient's L chest wall appeared erathematous, a large amount of skin in the axillary region was beefy-red with some satellite papules in the skin folds. There was no drainage or malodorous discharge. There were a few small areas of broken skin/open wounds on her anterior chest wall, but again, they were not oozing, there was no apparent drainage or pus. The patient reported that the area was tender to touch. Her clinical presentation was suggestive of candidiasis intertrigo, not cellulitis. Vancomycin was discontinued and the patient was placed on clotrimazole cream. One set of blood cultures (+) for group B beta STREP, and organism commonly found in patients with diabetic wounds. The patient did have a hx of diabetes, and her (+) positive set of blood cultures was likely stemming from an open wound on the chest wall. Initiated PO ceftin. On the day of discharge, the redness to the chest wall appears slightly improved. The beefy red appearance of the skin folds was relatively unchanged. The patient had been seen by a number of providers during this hospital stay (oncology, hospitalist), and we all feel that her skin condition is not related to cellulitis. It is more likely to be a recurrent magdiel infection. The patient was instructed to keep the area clean and dry, additionally, she was c ounseled on the importance of losing weight and following up with a trousseau consultant. The patient and family stated understanding. For further information regarding the patient's hospitalization, please refer to the EMR. Physical Exam Vital Signs: Temp Pulse Resp BP Pulse Ox 98.1 F 81 16 121/59 L 100 05/29/18 18:00 05/29/18 18:00 05/29/18 18:00 05/29/18 18:00 05/29/18 18:00 Intake & Output 05/30/18 05/31/18 06/01/18 06:59 06:59 06:59 Intake Total 340 Balance 340 Results Laboratory Results: 05/27/18 04:20 05/27/18 04:20 05/27/18 04:20 NT-Pro-B Natriuret Pep 812 Impressions: Body Scan Nuclear Medicine 05/29/18 00:00 IMPRESSION: No evidence of metastatic disease. Qualifiers - * PATIENT BEING DISCHARGED WITH ANY OF THE FOLLOWING DIAGNOSIS: No Plan Discharge Plan: DERMATOLOGY FOLLOW UP. CONTINUE PO CEFTIN FOR GROUP B BETA STREP, LIKELY STEMMING FROM DIABETIC WOUND INFECTION. Time Spent: Greater than 30 Minutes
[2018-05-31] MEDS ORDERED: POTASSIUM CHLORIDE 10 MEQ CAPSULE.ER PO SCH (10:00)
== END 2018-05-29 18:00 | disposition home or self-care (01) ==
LOC: ER 07:30 → INTOOBSV 12:11 → EH 12:11 → 5 17:44
PROVIDERS: ADMIT Internal Medicine; ATTEND Internal Medicine
DX: L53.8 Other specified erythematous conditions (principal); I48.2 Chronic atrial fibrillation; C50.812 Malignant neoplasm of overlapping sites of left female breast; E11.9 Type 2 diabetes mellitus without complications; E03.9 Hypothyroidism, unspecified; B95.1 Streptococcus, group B, as the cause of diseases classified elsewhere; I25.2 Old myocardial infarction; I10 Essential (primary) hypertension; I89.0 Lymphedema, not elsewhere classified; M54.9 Dorsalgia, unspecified; R21 Rash and other nonspecific skin eruption; R06.00 Dyspnea, unspecified; F41.9 Anxiety disorder, unspecified; E66.01 Morbid (severe) obesity due to excess calories; K46.9 Unspecified abdominal hernia without obstruction or gangrene; R26.9 Unspecified abnormalities of gait and mobility; M62.81 Muscle weakness (generalized); S21.109A Unspecified open wound of unspecified front wall of thorax without penetration into thoracic cavity, initial encounter; X58.XXXA Exposure to other specified factors, initial encounter; M89.8X6 Other specified disorders of bone, lower leg; R22.42 Localized swelling, mass and lump, left lower limb; R61 Generalized hyperhidrosis; R68.83 Chills (without fever); R00.0 Tachycardia, unspecified; Z79.899 Other long term (current) drug therapy; Z79.02 Long term (current) use of antithrombotics/antiplatelets; Z90.13 Acquired absence of bilateral breasts and nipples; Z90.49 Acquired absence of other specified parts of digestive tract; Z87.891 Personal history of nicotine dependence; Z80.3 Family history of malignant neoplasm of breast; Z82.49 Family history of ischemic heart disease and other diseases of the circulatory system; Z68.44 Body mass index [BMI] 60.0-69.9, adult
CPT/HCPCS: 36415; 87040; 82962 ×4; 85025 ×2; 87077; 80053 ×2; 87186; 80202; 83036; 83605; 83880; 78306; A9561; A9270 ×28; J3490 ×4; J2550 ×2; J2405; J1650; J7060 ×2; J7030; J3370 ×2; Q9969; J1815; S0119

== ENCOUNTER 2018-08-30 16:42 | Emergency (ER) | payer MEDICARE, MEDICAID ==
[2018-08-30] MEDS ORDERED: ONDANSETRON 4 MG TAB.RAPDIS PO ONE (17:02)
--- NOTE | 2018-08-30 17:04 | ER Document Report ---
ED Medical Screen (RME) - General Chief Complaint: Abdominal Pain Stated Complaint: ABDOMINAL PAIN Time Seen by Provider: 08/30/18 16:59 Mode of Arrival: Medic Information source: Patient Notes: Patient presents to the emergency department with complaints of right-sided breast pain, possible cellulitis. She reports history of breast cancer. She reports bilateral mastectomy last September. She reports she has had several infections. This one started approximately 2 hours ago. She reports the site is red and purple. She also complains of severe nausea. She reports she has had this before and had to receive IV antibiotics. Has a history of diabetes and high blood pressure. I have greeted and performed a rapid initial assessment of this patient. A comprehensive ED assessment and evaluation of the patient, analysis of test results and completion of the medical decision making process will be conducted by additional ED providers. Dictation of this chart was performed using voice recognition software; therefore, there may be some unintended grammatical errors. TRAVEL OUTSIDE OF THE [place] IN LAST 30 DAYS: No - Related Data Allergies/Adverse Reactions: dronedarone [From Multaq] Allergy (Severe, Verified 08/30/18 16:43) Difficulty breathing Past Medical History - Past Medical History Cardiac Medical History: Reports: Hx Atrial Fibrillation Pulmonary Medical History: Denies: Hx Sleep Apnea Endocrine Medical History: Reports: Hx Diabetes Mellitus Type 2 Renal/ Medical History: Denies: Hx Peritoneal Dialysis Malignancy Medical History: Reports: Hx Breast Cancer Musculoskeltal Medical History: Reports Hx Arthritis Psychiatric Medical History: Reports: Hx Depression Past Surgical History: Reports: Hx Cholecystectomy, Hx Mastectomy Physical Exam - Vital signs Vitals: Temp Pulse Resp BP Pulse Ox 97.5 F 117 H 20 152/70 H 98 08/30/18 16:54 08/30/18 16:54 08/30/18 16:54 08/30/18 16:54 08/30/18 16:54 Course - Vital Signs Vital signs: Temp Pulse Resp BP Pulse Ox 97.5 F 117 H 20 152/70 H 98 08/30/18 16:54 08/30/18 16:54 08/30/18 16:54 08/30/18 16:54 08/30/18 16:54
[2018-08-30 17:38] LABS: ABSOLUTE LYMPHOCYTES (AUTO) 0.4 10^3/uL (0.5-4.7); ABSOLUTE MONOCYTES (AUTO) 0.2 10^3/uL (0.1-1.4); ABSOLUTE NEUT (AUTO) 4.8 10^3/uL (1.7-8.2); BASOPHILS % (AUTO) 0.3 % (0-2); EOSINOPHILS % (AUTO) 0.6 % (0-6); HEMATOCRIT 43.9 % (36.0-47.0); LYMPHOCYTES % (AUTO) 7.6 % (13-45); MEAN CORPUSCULAR HGB CONC 34.2 g/dL (32.0-36.0); MEAN CORPUSCULAR VOLUME 91 fl (80-97); MONOCYTES % (AUTO) 3.9 % (3-13); PLATELET COUNT 126 10^3/uL (150-450); RED BLOOD COUNT 4.83 10^6/uL (3.72-5.28); RED CELL DISTRIBUTION WIDTH 13.1 % (11.5-14.0); SEGMENTED NEUTROPHILS % (AUTO) 87.6 % (42-78); TOTAL CELLS COUNTED % (AUTO) 100 %; WHITE BLOOD COUNT 5.4 10^3/uL (4.0-10.5)
[2018-08-30 18:37] LABS: ALANINE AMINOTRANSFERASE 21 U/L (9-52); ALBUMIN 3.5 g/dL (3.5-5.0); ALKALINE PHOSPHATASE 90 U/L (38-126); ANION GAP 10 (5-19); ASPARTATE AMINO TRANSFERASE 34 U/L (14-36); BILIRUBIN,DIRECT 0.4 mg/dL (0.0-0.4); BILIRUBIN,TOTAL 1.3 mg/dL (0.2-1.3); BLOOD UREA NITROGEN 9 mg/dL (7-20); CALCIUM 8.8 mg/dL (8.4-10.2); CARBON DIOXIDE 25 mmol/L (22-30); CHLORIDE 104 mmol/L (98-107); GLUCOSE 128 mg/dL (75-110); POTASSIUM 3.7 mmol/L (3.6-5.0); SODIUM 138.6 mmol/L (137-145); TOTAL PROTEIN 7.1 g/dL (6.3-8.2)
[2018-08-30] MEDS ORDERED: PIPERACILLIN/TAZOBACTAM 3.375 GM VIAL IV ONE (19:20)
[2018-08-30] MEDS ORDERED: VANCOMYCIN HCL INJ 1000 MG VIAL IV ONE (19:20)
[2018-08-30] MEDS ORDERED: METOCLOPRAMIDE HCL INJ/PF 10 MG/2 ML SDV IV ONE (19:24)
[2018-08-30] MEDS ORDERED: HYDROMORPHONE HCL INJ/PF 2 MG/ML AMPULE IV ONE ×2 (19:24→23:16)
--- NOTE | 2018-08-30 19:32 | ER Document Report ---
Addendum entered and electronically signed by GREGORY GANT PA-C 08/30/18 22:33: Discharge - Discharge Clinical Impression: Cellulitis of chest wall Atrial fibrillation Qualifiers: Atrial fibrillation type: chronic Qualified Code(s): I48.2 - Chronic atrial fibrillation Condition: Good Disposition: HOME, SELF-CARE Instructions: Cellulitis ([facility]) Additional Instructions: Start the clindamycin tomorrow. Please follow-up in this ER or with your primary care doctor for a recheck tomorrow. Prescriptions: Clindamycin HCl 300 mg PO QID #40 capsule Referrals: GREGORY GANT PA-C [Emergency Provider] - Follow up tomorrow Original Note: ED General - General Chief Complaint: Abdominal Pain Stated Complaint: ABDOMINAL PAIN Time Seen by Provider: 08/30/18 16:59 Mode of Arrival: Medic TRAVEL OUTSIDE OF THE [place] IN LAST 30 DAYS: No - HPI Patient complains to provider of: Right sided chest wall infection Onset: This evening - A few hours prior to arrival Onset/Duration: Sudden Severity: Severe Pain Level: 4 Associated symptoms: Chills. denies: Fever Exacerbated by: Denies Relieved by: Denies Similar symptoms previously: No Recently seen / treated by doctor: No Notes: Patient is a 53-year-old obese female with history of diabetes and double mastectomy coming in today with the right sided chest redness heat and chills. She had a double mastectomy last September. Has had cellulitis multiple times in the chest wall. Symptoms started acutely about 2 hours prior to coming in. Patient reports chills with vomiting x3. - Related Data Allergies/Adverse Reactions: dronedarone [From Multaq] Allergy (Severe, Verified 08/30/18 16:43) Difficulty breathing Past Medical History - General Information source: Patient - Social History Smoking Status: Unknown if Ever Smoked Family History: None, DM, Hypertension, Malignancy Patient has suicidal ideation: No Patient has homicidal ideation: No - Past Medical History Cardiac Medical History: Reports: Hx Atrial Fibrillation Pulmonary Medical History: Denies: Hx Sleep Apnea Endocrine Medical History: Reports: Hx Diabetes Mellitus Type 2 Renal/ Medical History: Denies: Hx Peritoneal Dialysis Malignancy Medical History: Reports: Hx Breast Cancer Musculoskeletal Medical History: Reports Hx Arthritis Psychiatric Medical History: Reports: Hx Depression Past Surgical History: Reports: Hx Cholecystectomy, Hx Mastectomy Review of Systems - Review of Systems Notes: Constitutional: No fevers. No chills. EENT: No eye redness. No eye pain. No ear pain. No sore throat. Cardiovascular: No chest pain. No palpitations. Respiratory: No cough. No shortness of breath. No respiratory distress. Gastrointestinal: No abdominal pain. No nausea, vomiting, or diarrhea. Genitourinary: Atraumatic. No lesions. No pain. No discharge. Musculoskeletal: Redness and heat in the right chest wall with tenderness to palpation Skin: No rash or lesions. Lymphatic: No swollen lymph nodes. Neurologic: No headache. No syncope. Psychiatric: No suicidal or homicidal ideation. Hematologic: Large amount of bruising over the right chest incision region as well as large hematoma collection in the right axilla. Physical Exam - Vital signs Vitals: Temp Pulse Resp BP Pulse Ox 97.5 F 117 H 20 152/70 H 98 08/30/18 16:54 08/30/18 16:54 08/30/18 16:54 08/30/18 16:54 08/30/18 16:54 - General Notes: General: Well-developed, well-nourished. In no acute distress. Ill-appearing Cardiac: Well-perfused. Regular rhythm. Tachycardic . no murmurs, rubs, or gallops. Pulmonary: No respiratory distress. No cyanosis. Bilateral lung fiels are clear to auscultation. Abdominal: Non-distended. Non-rigid. Bowels sounds are present in all four quadrants. No guarding or rebound. HEENT: Head is atraumatic. Conjunctivae not reddened. No tearing. PERRL. EOMI. Orbits atraumatic. No periorbital swelling or erythema. Oropharynx is without erythema, swelling, or exudates. Neck: Supple. No adenopathy. No meningismus. Dermatologic: Warm with good turgor. No rash. Atraumatic. Chest: Patient has evidence of bilateral mastectomy. There is a redness swelling and heat over the site on the right side. Erythema and warmth to touch. Ecchymosis. There is also a possible large hematoma in the right axilla. Musculoskeletal: Moves all extremities well. No range of motion deficits. no muscular or joint tenderness. No paraspinal muscle tenderness. no midline spinal tenderness or step-off. Genitourinary: Examination deferred Neurologic: No gross neurologic deficits. Psychiatric: Normal mood. Course - Re-evaluation Re-evalutation: 08/30/18 22:26 The patient's labs are back. White count is normal. No lactic acidosis. Discussed the case with Dr. Thaddeus lucio. He does not feel the patient needs admission based on my presentation. I also discussed the case with the patient's oncologist Steve and he does not really feel that it is anything that relates to him as an oncologist. We will discharge patient home on clindamycin and have her return in 24 hours for recheck. Patient understands the situation. She says that she may go to [facility] because is closer to her 's work. Also she has a primary care doctor closer to that town. I told her that I fully understood what ever her motivation may be. I am unable to admit her at this time but if she does fail as an outpatient she will need admission for IV. - Vital Signs Vital signs: Temp Pulse Resp BP Pulse Ox 98.9 F 117 H 20 152/70 H 98 08/30/18 19:04 08/30/18 16:54 08/30/18 16:54 08/30/18 16:54 08/30/18 16:54 - Laboratory Result Diagrams: 08/30/18 17:07 08/30/18 17:07 Laboratory results interpreted by me: 08/30/18 08/30/18 08/30/18 17:07 17:07 20:20 Plt Count 126 L Seg Neutrophils % 87.6 H Lymphocytes % 7.6 L Absolute Lymphocytes 0.4 L Glucose 128 H Urine Glucose (UA) >=500 H Urine Blood SMALL H Discharge - Discharge Clinical Impression: Cellulitis of chest wall Atrial fibrillation Qualifiers: Atrial fibrillation type: chronic Qualified Code(s): I48.2 - Chronic atrial fibrillation Condition: Good Disposition: HOME, SELF-CARE Instructions: Cellulitis ([facility]) Additional Instructions: Start the clindamycin tomorrow. Please follow-up in this ER or with your primary care doctor for a recheck tomorrow. Prescriptions: RX: Clindamycin HCl 300 mg PO QID #40 capsule Referrals: GREGORY GANT PA-C [Emergency Provider] - Follow up tomorrow
[2018-08-30] MEDS: NORMAL SALINE 1000 ML 1,000 ML IV PRN ×2 (19:51→21:24)
[2018-08-30 20:49] LABS: AMORPHOUS SEDIMENT,URINE TRACE /HPF; APPEARANCE,URINE SLIGHTLY-CLOUDY; BILIRUBIN,URINE NEGATIVE (NEGATIVE); COLOR,URINE YELLOW; GLUCOSE, URINE >=500 mg/dL (NEGATIVE); KETONES,URINE NEGATIVE (NEGATIVE); LEUKOCYTE ESTERASE,URINE NEGATIVE (NEGATIVE); NITRITE,URINE NEGATIVE (NEGATIVE); PROTEIN,URINE NEGATIVE (NEGATIVE); URINE SPECIFIC GRAVITY 1.027; UROBILINOGEN,URINE NEGATIVE mg/dL (<2.0)
--- NOTE | 2018-08-30 21:21 | RADIOLOGY REPORT (SQ) ---
EXAM DESCRIPTION: CT CHEST WITH IV CONTRAST COMPLETED DATE/TME: 08/30/2018 19:36 CLINICAL HISTORY: 53 years, Female, right chest redness, swelling, ecchy-r/o abscess COMPARISON: None. TECHNIQUE: CT angiography of the chest was performed following intravenous administration of contrast. . This exam was performed according to our departmental dose optimization program which includes use of automated exposure control, adjustment of the mA and/or kV according to patient size and/or use of iterative reconstruction technique. Images stored on PACS. All CT scanners at this facility use dose modulation, iterative reconstruction, and/or weight based dosing when appropriate to reduce radiation dose to as low as reasonably achievable (ALARA). [facility]: Dose Right [facility]: CareDose [facility]: Dose Right [facility]: Teradose 4D [facility]: haku LIMITATIONS: None. FINDINGS: Chest: Thickening of the soft tissues of the RIGHT anterolateral chest wall with underlying reticulation raising the possibility of edema and/or cellulitis. Multifocal surgical clips at the anterior bilateral chest wall. Evaluation through the lungs reveals no focal opacity, pleural effusion or pneumothorax. There is minimal dependent basilar atelectasis and scarring. The tracheobronchial airways are patent. No significant mediastinal or axillary lymphadenopathy by CT measurement criteria. Limited evaluation of the upper abdomen shows no acute intra-abdominal abnormalities. Calcification is identified within the gallbladder compatible with gallstones. Splenomegaly with varices of uncertain etiology. Nonspecific focus of hypoattenuation present within the dome of the spleen, difficult to characterize secondary to extensive artifact. This location raising the possibility of splenic cyst or other splenic lesion of uncertain etiology. The area of hypoattenuation measures approximately 18 mm. The osseous structures reveal possible fracture versus artifact through the anterior LEFT side temporal IMPRESSION: 1. Thickening of the soft tissues of the RIGHT anterolateral chest wall with underlying reticulation raising the possibility of edema and/or cellulitis. 2. The lungs are clear without focal opacity, pleural effusion or pneumothorax. 3. Cholelithiasis. 4. Nonspecific hypoattenuating lesion within the spleen as detailed above. 5. Splenomegaly with varices of uncertain etiology. 6. Nondisplaced fracture versus artifact through the anterior LEFT 10th rib. TECHNICAL DOCUMENTATION: Quality ID # [id number]: Final reports with documentation of one or more dose reduction techniques (e.g., Automated exposure control, adjustment of the mA and/or kV according to patient size, use of iterative reconstruction technique) copyright 2011 [email or web address]- All Rights Reserved
[2018-08-30] MEDS ORDERED: ONDANSETRON HCL INJ/PF 4 MG/2 ML SDV IV ONE (22:38)
[2018-08-30] MEDS ORDERED: METOPROLOL SUCCINATE 25 MG TAB.SR.24H PO ONE (23:17)
[2018-08-30 23:41] VITALS: BP 140/64
== END 2018-08-30 23:55 | disposition home or self-care (01) ==
LOC: ER 16:42
DX: T81.42XA Infection following a procedure, deep incisional surgical site, initial encounter (principal); L03.313 Cellulitis of chest wall; I48.2 Chronic atrial fibrillation; R10.9 Unspecified abdominal pain; E11.9 Type 2 diabetes mellitus without complications; Z85.3 Personal history of malignant neoplasm of breast; Z98.890 Other specified postprocedural states
CPT/HCPCS: 96376; 99284; 96361; 96375; 96365; 96366; 96367; 36415; 87040; 85025; 80053; 81001; 83605; 71260; A9270 ×2; J2765; J1170; J2405; J7030; J3370; J2543; S0119